=== PATIENT | female | born 1975 | race African-American/Black ===

== ENCOUNTER 2016-09-25 20:49 | Emergency (ER) | payer OTHER ==
[~2016-09-25] VITALS: Ht 170.2 cm; Wt 79.6 kg
[~2016-09-25 20:49] MED LIST: ALPR1TAB2 PO; HYDR200T PO; PANT40TA3 PO; SERT25TA4 PO; TOPI200T25 PO
[2016-09-25] MEDS ORDERED: methylPREDNISolone SOD SUCC PF 125 MG/2 ML VIAL. IV ONE (22:00)
[2016-09-25] MEDS ORDERED: KETOROLAC 15 MG/ML VIAL. IV ONE (22:00)
[2016-09-25] MEDS ORDERED: PRED50TA PO (22:29)
--- NOTE | 2016-09-25 22:30 | PHYS DOC ---
Past History Past Medical History: Anemia, Anxiety, GERD, Immunosuppression, Seizure, Other Past Surgical History: Tubal ligation Alcohol Use: Rarely Drug Use: None Adult General Chief Complaint Chief Complaint: CHEST PAIN-NON CARDIAC NATURE HPI HPI Patient is a 41-year-old female with a history significant for lupus as well as Sjogren's who presents here today complaining of right-sided chest pain 1-2 days. Patient reports usually she takes nonsteroidals at home with relief however she reports currently she has not been able to get adequate relief with her medicines. Patient reports that this feels typical of her lupus flareup. Reports whenever she has a lupus flare up she comes to the hospital and she isn' t sure of Toradol and get started on steroids and his symptoms resolve. Patient denies any other symptomatology. Patient has any history of hypertension diabetes liver longer kidney problems. Patient denies any history of blood clots in her lungs or legs in the past. Patient denies any history of heart disease or heart attacks in the past. Patient has any recent fevers shakes chills nausea vomiting diarrhea cough cold or runny nose. Patient has any abdominal pain. Patient has any calf tenderness. Patient has any hemoptysis. She reports the pain is nonexertional. Patient reports pain increases with inspiration and palpation. Patient's ER physical exam was significant for tenderness to palpation to her right anterior chest wall. Patient's chest x-ray revealed normal heart no infiltrates or effusions. Patient's ER hospital course is significant for receiving a shot of Toradol 50 mg IV as well as her sign Medrol 125 mg IV. Patient was reevaluated at 10:25 PM and reports that she feels significantly improved. Assessment and plan Non-cardiac chest wall pain. This appears to be consistent with the patient's lupus exacerbations per the patient's report. Patient reports that this feels identical in every way. Prior lupus flareups. Patient reports that normally she gets Toradol with significant relief in her pain patient has received her Toradol and Solu-Medrol here and feels much better. Patient be sent home with a short course of steroids and instructions to follow-up with her primary care physician. Patient reports she is not . Patient had a bilateral tubal ligation, no sex 2 years, uterine ablation. Review of Systems Review of Systems Constitutional: Denies fever or chills [] Eyes: Denies change in visual acuity, redness, or eye pain [] HENT: Denies nasal congestion or sore throat [] All other review systems are negative except as documented in the history of present illness portion. Current Medications Current Medications Current Medications Medications (Trade) Dose Ordered Sig/Salud Start Time Stop Time Status Last Admin Dose Admin Ketorolac Tromethamine (Toradol) 15 mg 1X ONCE 09/25/16 22:00 09/25/16 22:01 DC 09/25/16 21:48 15 MG Methylprednisolone Sodium Succinate (SOLU-Medrol 125MG VIAL) 125 mg 1X ONCE 09/25/16 22:00 09/25/16 22:01 DC 09/25/16 21:48 125 MG Allergies Allergies Allergies Coded Allergies Type Severity Reaction Last Updated Verified No Known Drug Allergies 03/15/16 No Physical Exam Physical Exam Constitutional: Well developed, well nourished, no acute distress, non-toxic appearance. HENT: Normocephalic, atraumatic, bilateral external ears normal, oropharynx moist, no oral exudates, nose normal. Eyes: PERRLA, EOMI, conjunctiva normal, no discharge. Neck: Normal range of motion, no tenderness, supple, no stridor. Cardiovascular:Heart rate regular Lungs & Thorax: Bilateral breath sounds clear to auscultation Abdomen: , soft, no tenderness, Skin: Warm, dry, no erythema, no rash. Back: No tenderness, no CVA tenderness. Extremities: No tenderness, no cyanosis, no clubbing, ROM intact, no edema. Neurologic: Alert and oriented X 3, normal motor function, normal sensory function, no focal deficits noted. Psychologic: Affect normal, judgement normal, mood normal. Current Patient Data Vital Signs Vital Signs Date Time Temp Pulse Resp B/P (MAP) Pulse Ox O2 Delivery O2 Flow Rate FiO2 09/25/16 20:50 98.7 96 16 99 Room Air EKG EKG [] Radiology/Procedures Radiology/Procedures [] Course & Med Decision Making Course & Med Decision Making Pertinent Labs and Imaging studies reviewed. (See chart for details) [] Dragon Disclaimer Dragon Disclaimer This chart was dictated in whole or in part using Voice Recognition software in a busy, high-work load, and often noisy Emergency Department environment. It may contain unintended and wholly unrecognized errors or omissions. Departure Departure: Impression: Primary Impression: Chest wall pain Additional Impression: Exacerbation of systemic lupus Condition: GUARDED Referrals: ASHLEY JONES (PCP) Patient Instructions: Chest Wall Pain Additional Instructions: You were seen and evaluated today in the ER for your chest wall pain. This does appear to be likely consistent with your lupus flareup. Your chest x-ray in the ER looks normal. Your being discharged home with instructions to follow-up with her primary care physician or lupus physician for further evaluation and management of your pain. You'll be given a prescription for prednisone to take to assist you with your flareup. Scripts Prednisone (PREDNISONE) 50 Mg Tablet 1 TAB PO DAILY, #5 TAB Prov: INGRIS WEAVER MD 09/25/16 Problem Qualifiers INGRIS WEAVER MD Sep 25, 2016 22:30
[2016-09-25 22:36] VITALS: BP 110/65
--- NOTE | 2016-09-26 07:45 | RAD ---
Chest radiograph 09/25/2016 at 2138 hours Indication: Chest discomfort Comparison: Chest radiograph 03/15/2016 Technique: PA and lateral views of the chest are provided. Findings: Cardiomediastinal silhouette is within normal limits. No pleural effusions, pulmonary vascular congestion or pneumothorax. The lungs are clear. Osseous structures are normal. Impression: No acute cardiopulmonary process.
== END 2016-09-25 22:38 | disposition home or self-care (01) ==
LOC: ER 20:49
DX: R07.89 Other chest pain (principal); M32.9 Systemic lupus erythematosus, unspecified; K21.9 Gastro-esophageal reflux disease without esophagitis; F41.9 Anxiety disorder, unspecified; Z86.2 Personal history of diseases of the blood and blood-forming organs and certain disorders involving the immune mechanism
CPT/HCPCS: 71020; 96374; 96375; 99284; J1885; J2930

== ENCOUNTER → 2016-11-08 | Outpatient (CLI) | payer OTHER ==
[~2016-11-08] MED LIST changes: +PRED50TA PO
[2016-11-08 07:17] LABS: BASO % 1 % (0-3); EOS % 0 % (0-3); HEMOGLOBIN 11.9 g/dL (12.0-15.5); LYMPH # 0.9 x10^3/uL (1.0-4.8); LYMPH % 31 % (24-48); MEAN CORPUSCULAR HEMOGLOBIN 27 pg (25-35); MEAN CORPUSCULAR HGB CONC 33 g/dL (31-37); MEAN CORPUSCULAR VOLUME 80 fL (79-100); MONO # 0.3 x10^3/uL (0.0-1.1); MONO % 10 % (0-9); NEUT # 1.8 x10^3uL (1.8-7.7); NEUT % 59 % (31-73); PLATELET COUNT 222 x10^3/uL (140-400); RED BLOOD COUNT 4.48 x10^6/uL (3.50-5.40); RED CELL DISTRIBUTION WIDTH 14.4 % (11.5-14.5)
[2016-11-08 07:23] LABS: ALBUMIN 3.5 g/dL (3.4-5.0); ALBUMIN/GLOBULIN RATIO 0.7 (1.0-1.7); C REACTIVE PROTEIN 1.9 mg/L (0-3.3); CALCIUM 8.6 mg/dL (8.5-10.1); CREATININE 0.8 mg/dL (0.6-1.0); GFR 96.6; POTASSIUM 3.9 mmol/L (3.5-5.1); TOTAL BILIRUBIN 0.3 mg/dL (0.2-1.0); TOTAL PROTEIN 8.4 g/dL (6.4-8.2)
[2016-11-08 08:20] LABS: SEDIMENTATION RATE 48 (0-25)
[2016-11-08 09:49] LABS: BACTERIA,URINE 0 /HPF (0-FEW); BILIRUBIN,URINE NEG (NEG); CLARITY,URINE CLEAR; COLOR,URINE AMBER; GLUCOSE,URINE NEG (NEG); NITRITE,URINE NEG (NEG); RBC,URINE RARE /HPF (0-2); SQUAMOUS EPITHELIAL CELL,UR OCC /LPF; UROBILINOGEN,URINE 0.2 mg/dL (0.2 mg/dL); WBC,URINE RARE /HPF (0-4)
== END | disposition home or self-care (01) ==
LOC: LAB 06:10
PROVIDERS: ATTEND Internal Medicine Rheumatology
DX: M32.9 Systemic lupus erythematosus, unspecified (principal)
CPT/HCPCS: 36415; 80053; 81001; 85025; 85651; 86140; 87801

== ENCOUNTER 2016-12-05 06:52 | Emergency (ER) | payer OTHER ==
[~2016-12-05] VITALS: Ht 170.2 cm; Wt 78.9 kg
[2016-12-05] MEDS ORDERED: IV NORMAL SALINE 1,000ML 1,000 ML IV SCH (07:06)
--- NOTE | 2016-12-05 07:26 | PHYS DOC ---
Past History Past Medical History: Anemia, Anxiety, GERD, Immunosuppression, Seizure, Other Past Surgical History: Tubal ligation Alcohol Use: Rarely Drug Use: None Adult General Chief Complaint Chief Complaint: BACK PAIN OR INJURY HPI HPI Patient is a 41 year old female who presents with complaint of left-sided chest pain. Patient states that she noticed the pain approximately 7 hours prior to arrival. Patient states that the pain has been constant throughout that whole time. Patient rates the pain as 8 out of 10. Patient describes the pain as sharp and located along the left side of her chest. Patient states it radiates towards her back. Patient notes that the pain worsens when she takes a deep breath. Patient states that she has been having upper respiratory symptoms of congestion and cough over the past 3 days prior to onset of symptoms. Patient gives history of SLE and has had previous flareups in the past. Patient notes that she has not had these symptoms with her previous flareups. Review of Systems Review of Systems Constitutional: Denies fever or chills [] Eyes: Denies change in visual acuity, redness, or eye pain [] HENT: Nasal congestion, denies sore throat [] Respiratory: Cough[] Cardiovascular: Chest pain[] GI: Denies abdominal pain, nausea, vomiting, bloody stools or diarrhea [] : Denies dysuria or hematuria [] Musculoskeletal: Denies back pain or joint pain [] Integument: Denies rash or skin lesions [] Neurologic: Denies headache, focal weakness or sensory changes [] Current Medications Current Medications Current Medications Medications (Trade) Dose Ordered Sig/[facility] Start Time Stop Time Status Last Admin Dose Admin Aspirin (Children'S Aspirin) 324 mg 1X ONCE 12/05/16 07:30 12/05/16 07:31 Fentanyl Citrate (Fentanyl 2ml Vial) 50 mcg PRN Q15MIN PRN 12/05/16 07:15 12/06/16 07:14 Ondansetron HCl (Zofran) 4 mg 1X ONCE 12/05/16 07:30 12/05/16 07:31 Sodium Chloride 1,000 ml @ 1,000 mls/hr Q1H 12/05/16 07:06 12/05/16 08:05 Allergies Allergies Allergies Coded Allergies Type Severity Reaction Last Updated Verified No Known Drug Allergies 03/15/16 No Physical Exam Physical Exam Constitutional: Alert, afebrile, appears in moderate discomfort. [] HENT: Normocephalic, atraumatic, bilateral external ears normal, oropharynx moist, no oral exudates, nose normal. [] Eyes: PERRLA, EOMI, conjunctiva normal, no discharge. [] Neck: Normal range of motion, no tenderness, supple, no stridor. [] Cardiovascular:Heart rate regular rhythm, no murmur [] Lungs & Thorax: Bilateral breath sounds clear to auscultation, left anterior chest wall tenderness to palpation [] Abdomen: Bowel sounds normal, soft, no tenderness, no masses, no pulsatile masses. [] Skin: Warm, dry, no erythema, no rash. [] Back: No tenderness, no CVA tenderness. [] Extremities: No tenderness, no cyanosis, no clubbing, ROM intact, no edema. [] Neurologic: Alert and oriented X 3, normal motor function, normal sensory function, no focal deficits noted. [] Current Patient Data Vital Signs Vital Signs Date Time Temp Pulse Resp B/P (MAP) Pulse Ox O2 Delivery O2 Flow Rate FiO2 12/05/16 08:18 59 18 91/53 (66) 100 Room Air 12/05/16 06:52 98.7 Lab Results Laboratory Tests Test 12/05/16 07:27 12/05/16 07:40 White Blood Count 3.7 x10^3/uL Red Blood Count 4.30 x10^6/uL Hemoglobin 11.5 g/dL Hematocrit 34.7 % Mean Corpuscular Volume 81 fL Mean Corpuscular Hemoglobin 27 pg Mean Corpuscular Hemoglobin Concent 33 g/dL Red Cell Distribution Width 14.4 % Platelet Count 181 x10^3/uL Neutrophils (%) (Auto) 78 % Lymphocytes (%) (Auto) 15 % Monocytes (%) (Auto) 7 % Eosinophils (%) (Auto) 0 % Basophils (%) (Auto) 0 % Neutrophils # (Auto) 2.9 x10^3uL Lymphocytes # (Auto) 0.6 x10^3/uL Monocytes # (Auto) 0.3 x10^3/uL Eosinophils # (Auto) 0.0 x10^3/uL Basophils # (Auto) 0.0 x10^3/uL Sodium Level 136 mmol/L Potassium Level 3.7 mmol/L Chloride Level 105 mmol/L Carbon Dioxide Level 23 mmol/L Anion Gap 8 Blood Urea Nitrogen 11 mg/dL Creatinine 0.9 mg/dL Estimated GFR (Cockcroft-Gault) 84.3 BUN/Creatinine Ratio 12 Glucose Level 83 mg/dL Calcium Level 8.8 mg/dL Magnesium Level 1.6 mg/dL Total Bilirubin 0.3 mg/dL Aspartate Amino Transf (AST/SGOT) 22 U/L Alanine Aminotransferase (ALT/SGPT) 20 U/L Alkaline Phosphatase 75 U/L Creatine Kinase 170 U/L Creatine Kinase MB (Mass) 1.4 ng/mL Creatine Kinase MB Relative Index 0.8 % Troponin I Quantitative < 0.017 ng/mL Total Protein 8.6 g/dL Albumin 3.4 g/dL Albumin/Globulin Ratio 0.7 Urine Collection Type Void Urine Color Yellow Urine Clarity Clear Urine pH 5.5 Urine Specific [place] 1.025 Urine Protein Neg Urine Glucose (UA) Neg mg/dL Urine Ketones (Stick) Neg mg/dL Urine Blood Neg Urine Nitrite Neg Urine Bilirubin Neg Urine Urobilinogen Dipstick 0.2 mg/dL Urine Leukocyte Esterase Neg Urine RBC 0 /HPF Urine WBC Occ /HPF Urine Squamous Epithelial Cells Occ /LPF Urine Bacteria 0 /HPF Urine Mucus Mod /LPF Urine Test Negative Current Medications Medications (Trade) Dose Ordered Sig/[facility]ud Route PRN Reason Start Time Stop Time Status Last Admin Dose Admin Aspirin (Children'S Aspirin) 324 mg 1X ONCE PO 12/05/16 07:30 12/05/16 07:31 DC 12/05/16 07:48 Fentanyl Citrate (Fentanyl 2ml Vial) 50 mcg PRN Q15MIN PRN IV PAIN GREATER THAN 3/10 12/05/16 07:15 12/06/16 07:14 12/05/16 07:49 Sodium Chloride 1,000 ml @ 1,000 mls/hr Q1H IV 12/05/16 07:06 12/05/16 08:05 DC 12/05/16 07:48 Ondansetron HCl (Zofran) 4 mg 1X ONCE IV 12/05/16 07:30 12/05/16 07:31 DC 12/05/16 07:48 Dexamethasone Sodium Phosphate (Decadron) 12 mg 1X ONCE IV 12/05/16 08:15 12/05/16 08:16 DC 12/05/16 08:06 EKG EKG Interpreted by me: Heart rate 64, sinus rhythm, normal intervals, normal axis, no acute ST/T-wave abnormalities present[] Radiology/Procedures Radiology/Procedures [address] [address] IMAGING REPORT Signed PATIENT: HOMA DOMINIQUE ACCOUNT: [id number] : 1975 LOCATION: ER AGE: 41 SEX: F EXAM STATUS: REG ER ORD. PHYSICIAN: WEN VENTURA MD REASON: chest pain PROCEDURE: PORTABLE CHEST 1V Portable chest, 12/05/2016: History: Chest pain Comparison is made to a study from 09/25/2016. The heart size and pulmonary vascularity are normal. There is mild left basilar infiltrate obscuring the heart border. The right lung is clear. There is no evidence of pleural fluid or pneumothorax. IMPRESSION: Mild left basilar atelectasis/infiltrate. DICTATED AND SIGNED BY: ABELINO JOHNSON MD DATE: 12/05/16731 CC: WEN VENTURA MD; ASHLEY JONES PA ~ [address] [address] IMAGING REPORT Signed PATIENT: HOMA DOMINIQUE ACCOUNT: [id number] : 1975 LOCATION: ER AGE: 41 SEX: F EXAM STATUS: REG ER ORD. PHYSICIAN: WEN VENTURA MD REASON: chest pain, positive d-dimer, rule out PE PROCEDURE: CT ANGIOGRAPHY CHEST Examination: CT angiography chest History: history of chest pain, elevated d-dimer. Comparison: 03/15/2016 Technique: Axial CT and radiographic images were performed with IV contrast. Coronal and sagittal 3-D MIP form was performed. PQRS Compliance Statement: One or more of the following individualized dose reduction techniques were utilized for this examination: 1. Automated exposure control 2. Adjustment of the mA and/or kV according to patient size 3. Use of iterative reconstruction technique Findings: The central airways are patent. The heart size grossly appears unremarkable. The caliber of the aorta grossly is unremarkable. There is no evidence of filling defect identified in the main pulmonary artery trunk and right and left main pulmonary arteries and the visualized lobar, segmental branches of the pulmonary arteries. There are multiple patchy airspace opacities identified in the bibasal lungs likely pneumonia or atelectasis or interstitial changes due to chronic fibrosis, has increased compared to prior exam. There are few scattered airspace opacities identified in the bilateral lungs. Interlobular septal thickening identified in the bilateral upper lobes particularly in the periphery of the bilateral upper lobes similar to prior exam. There is a 6 mm nodule identified in the right lower lobe of the lung grossly similar to prior exam. The visualized liver, spleen, and adrenals grossly appears unremarkable Mild degenerative changes thoracic spine. Impression: 1. No evidence of pulmonary embolism. 2. Interval increase in bibasal lung consolidation changes could be pneumonia or atelectasis or chronic interstitial changes. 3. Mild interlobular septal thickening identified in the bilateral upper lungs particularly in the periphery of the lungs could be secondary to interstitial lung disease. Correlate clinically. 4. 6 mm nodule right lower lobe of the lung unchanged. DICTATED AND SIGNED BY: ARUN REN MD DATE: 12/05/16 0903 CC: WEN VENTURA MD; ASHLEY JONES ~ [] Course & Med Decision Making Course & Med Decision Making Pertinent Labs and Imaging studies reviewed. (See chart for details) Patient was given aspirin, Decadron, fentanyl, and Zofran in the emergency department. The patient's D-dimer test was positive prompting CT angiogram. This was negative for pulmonary embolism. The patient has findings that may present evidence for acute pneumonia. The patient's pain appears to be likely pleuritic. Due to onset of pain 7 hours prior to arrival and normal CK, CK-MB, and troponin, one set of cardiac enzymes were used to rule out acute cardiac ischemia. Patient will be discharged on Medrol, albuterol, [place], and azithromycin. Advised follow-up in 2 days with primary doctor for reevaluation and return to emergency department for any worsening symptoms. Patient voiced understanding and in agreement with treatment plan. Dragon Disclaimer Dragon Disclaimer This chart was dictated in whole or in part using Voice Recognition software in a busy, high-work load, and often noisy Emergency Department environment. It may contain unintended and wholly unrecognized errors or omissions. Departure Departure: Impression: Primary Impression: Atypical pneumonia Additional Impression: Pleuritic chest pain Disposition: HOME, SELF-CARE Condition: IMPROVED Referrals: ASHLEY JONES (PCP) Patient Instructions: Pleurisy, Pneumonia, Adult Additional Instructions: Follow-up with your primary doctor in 2 days for reevaluation. Return to the emergency department for any worsening symptoms. Scripts Albuterol Sulfate (VENTOLIN HFA INHALER) 18 Gm Hfa.aer.ad 1 PUFF IH Q4HRS Y for SHORTNESS OF BREATH, #1 INHALER 0 Refills Prov: WEN VENTURA MD 12/05/16 Azithromycin (ZITHROMAX) 250 Mg Tablet 1 PKG PO UD, #6 TAB Prov: WEN VENTURA MD 12/05/16 Methylprednisolone (MEDROL) 4 Mg Tab.ds.pk 1 PKG PO UD, #1 PKG Prov: WEN VENTURA MD 12/05/16 Hydrocodone Bit/Acetaminophen (NORCO 5-325 TABLET) 1 Each Tablet 1-2 TAB PO Q4-6HRS Y for PAIN, #15 TAB Prov: WEN VENTURA MD 12/05/16 Problem Qualifiers WEN VENTURA MD Dec 05, 2016 07:26
[2016-12-05] MEDS ORDERED: ONDANSETRON PF 4 MG/2 ML VIAL. IV ONE (07:30)
[2016-12-05] MEDS ORDERED: ASPIRIN 81 MG TAB.CHEW PO ONE (07:30)
--- NOTE | 2016-12-05 07:36 | RAD ---
Portable chest, 12/05/2016: History: Chest pain Comparison is made to a study from 09/25/2016. The heart size and pulmonary vascularity are normal. There is mild left basilar infiltrate obscuring the heart border. The right lung is clear. There is no evidence of pleural fluid or pneumothorax. IMPRESSION: Mild left basilar atelectasis/infiltrate.
--- NOTE | 2016-12-05 07:38 | EKG ---
[address] [address] Test Date: 2016-12-05 Test Time: 07:13:11 Pat Name: HOMA DOMINIQUE Department: Room: Gender: F Nursing Home Assistant: : 1975 Requested By: WEN VENTURA Order Number: [id number] Reading MD: Igor Elise Measurements Intervals [place] Rate: 64 P: 22 DC: 166 QRS: 7 QRSD: 74 T: 22 QT: 398 QTc: 415 Interpretive Statements SINUS RHYTHM Electronically Signed On 12-11-2016 8:17:40 CDT by Igor Elise
[2016-12-05 07:45] LABS: BASO % 0 % (0-3); EOS % 0 % (0-3); HEMATOCRIT 34.7 % (36.0-47.0); HEMOGLOBIN 11.5 g/dL (12.0-15.5); LYMPH # 0.6 x10^3/uL (1.0-4.8); LYMPH % 15 % (24-48); MEAN CORPUSCULAR HEMOGLOBIN 27 pg (25-35); MEAN CORPUSCULAR HGB CONC 33 g/dL (31-37); MEAN CORPUSCULAR VOLUME 81 fL (79-100); MONO # 0.3 x10^3/uL (0.0-1.1); MONO % 7 % (0-9); NEUT # 2.9 x10^3uL (1.8-7.7); NEUT % 78 % (31-73); PLATELET COUNT 181 x10^3/uL (140-400); RED CELL DISTRIBUTION WIDTH 14.4 % (11.5-14.5); WHITE BLOOD COUNT 3.7 x10^3/uL (4.0-11.0)
[2016-12-05 07:58] LABS: BACTERIA,URINE 0 /HPF (0-FEW); BILIRUBIN,URINE NEG (NEG); CLARITY,URINE CLEAR; COLOR,URINE YELLOW; GLUCOSE,URINE NEG (NEG); NITRITE,URINE NEG (NEG); RBC,URINE 0 /HPF (0-2); SQUAMOUS EPITHELIAL CELL,UR OCC /LPF; UROBILINOGEN,URINE 0.2 mg/dL (0.2 mg/dL); WBC,URINE OCC /HPF (0-4)
[2016-12-05 07:59] LABS: U PREG PATIENT NEGATIVE (NEG)
[2016-12-05 08:06] LABS: ALBUMIN 3.4 g/dL (3.4-5.0); ALBUMIN/GLOBULIN RATIO 0.7 (1.0-1.7); CALCIUM 8.8 mg/dL (8.5-10.1); CREATININE 0.9 mg/dL (0.6-1.0); GFR 84.3; MAGNESIUM 1.6 mg/dL (1.8-2.4); POTASSIUM 3.7 mmol/L (3.5-5.1); TOTAL BILIRUBIN 0.3 mg/dL (0.2-1.0); TOTAL PROTEIN 8.6 g/dL (6.4-8.2)
[2016-12-05] MEDS ORDERED: DEXAMETHASONE SOD PHOS 4 MG/ML VIAL IV ONE (08:15)
[2016-12-05 08:18] VITALS: BP 91/53
[2016-12-05] MEDS ORDERED: IOHEXOL 300 MG/ML 75 ML VIAL. IV ONE (09:00)
--- NOTE | 2016-12-05 09:14 | RAD ---
Examination: CT angiography chest History: history of chest pain, elevated d-dimer. Comparison: 03/15/2016 Technique: Axial CT and radiographic images were performed with IV contrast. Coronal and sagittal 3-D MIP form was performed. PQRS Compliance Statement: One or more of the following individualized dose reduction techniques were utilized for this examination: 1. Automated exposure control 2. Adjustment of the mA and/or kV according to patient size 3. Use of iterative reconstruction technique Findings: The central airways are patent. The heart size grossly appears unremarkable. The caliber of the aorta grossly is unremarkable. There is no evidence of filling defect identified in the main pulmonary artery trunk and right and left main pulmonary arteries and the visualized lobar, segmental branches of the pulmonary arteries. There are multiple patchy airspace opacities identified in the bibasal lungs likely pneumonia or atelectasis or interstitial changes due to chronic fibrosis, has increased compared to prior exam. There are few scattered airspace opacities identified in the bilateral lungs. Interlobular septal thickening identified in the bilateral upper lobes particularly in the periphery of the bilateral upper lobes similar to prior exam. There is a 6 mm nodule identified in the right lower lobe of the lung grossly similar to prior exam. The visualized liver, spleen, and adrenals grossly appears unremarkable Mild degenerative changes thoracic spine. Impression: 1. No evidence of pulmonary embolism. 2. Interval increase in bibasal lung consolidation changes could be pneumonia or atelectasis or chronic interstitial changes. 3. Mild interlobular septal thickening identified in the bilateral upper lungs particularly in the periphery of the lungs could be secondary to interstitial lung disease. Correlate clinically. 4. 6 mm nodule right lower lobe of the lung unchanged.
[2016-12-05] MEDS ORDERED: AZIT250T PO (09:26)
[2016-12-05] MEDS ORDERED: HYDR-971 PO (09:26)
[2016-12-05] MEDS ORDERED: ALBU18HF IH (09:26)
[2016-12-05] MEDS ORDERED: METH4TAB2 PO (09:26)
== END 2016-12-05 09:40 | disposition home or self-care (01) ==
LOC: ER 06:52
DX: J18.9 Pneumonia, unspecified organism (principal); R07.81 Pleurodynia; K21.9 Gastro-esophageal reflux disease without esophagitis; F41.9 Anxiety disorder, unspecified; Z86.2 Personal history of diseases of the blood and blood-forming organs and certain disorders involving the immune mechanism
CPT/HCPCS: 36415; 71010; 71275; 80053; 81001; 81025; 82553; 83735; 84484; 85025; 85379; 85610; 85730; 93005; 96361; 96374; 96375; 96376; 99285; J1100; J2405; J3010; Q9967; J7030

== ENCOUNTER → 2017-02-25 | Outpatient (CLI) | payer OTHER ==
[~2017-02-25] MED LIST changes: +ALBU18HF IH; +AZIT250T PO; +HYDR-971 PO; -HYDR200T PO; +HYDR200T71 PO; +METH4TAB2 PO
[2017-02-25 11:52] LABS: BASO % 2 % (0-3); EOS % 0 % (0-3); HEMATOCRIT 38.1 % (36.0-47.0); HEMOGLOBIN 12.6 g/dL (12.0-15.5); LYMPH # 0.7 x10^3/uL (1.0-4.8); LYMPH % 28 % (24-48); MEAN CORPUSCULAR HEMOGLOBIN 27 pg (25-35); MEAN CORPUSCULAR HGB CONC 33 g/dL (31-37); MEAN CORPUSCULAR VOLUME 81 fL (79-100); MONO # 0.3 x10^3/uL (0.0-1.1); MONO % 12 % (0-9); NEUT # 1.4 x10^3uL (1.8-7.7); NEUT % 58 % (31-73); PLATELET COUNT 204 x10^3/uL (140-400); RED BLOOD COUNT 4.71 x10^6/uL (3.50-5.40); RED CELL DISTRIBUTION WIDTH 15.1 % (11.5-14.5); WHITE BLOOD COUNT 2.5 x10^3/uL (4.0-11.0)
[2017-02-25 12:04] LABS: ALBUMIN 3.7 g/dL (3.4-5.0); ALBUMIN/GLOBULIN RATIO 0.7 (1.0-1.7); CALCIUM 8.8 mg/dL (8.5-10.1); CREATININE 0.9 mg/dL (0.6-1.0); GFR 83.9; POTASSIUM 4.1 mmol/L (3.5-5.1); TOTAL BILIRUBIN 0.2 mg/dL (0.2-1.0); TOTAL PROTEIN 9.1 g/dL (6.4-8.2)
[2017-02-25 13:01] LABS: SEDIMENTATION RATE 48 (0-25)
[2017-02-25 13:43] LABS: FREE T4 0.79 ng/dL (0.76-1.46)
[2017-02-25 13:44] LABS: THYROID STIM HORMONE (TSH) 1.474 uIU/mL (0.358-3.740)
== END | disposition home or self-care (01) ==
LOC: LAB 10:18
PROVIDERS: ATTEND Physician Assistant Medical
DX: M35.1 Other overlap syndromes (principal); K21.9 Gastro-esophageal reflux disease without esophagitis; R79.89 Other specified abnormal findings of blood chemistry; E55.9 Vitamin D deficiency, unspecified
CPT/HCPCS: 36415; 80053; 80061; 82306; 82607; 82746; 83540; 83550; 84439; 84443; 84481; 85025; 85651

== ENCOUNTER → 2017-03-06 | Outpatient (CLI) | payer OTHER ==
--- NOTE | 2017-03-06 15:55 | RAD ---
DATE: 03/06/2017 EXAM: MAMMO JANAE SCREENING BILATERAL HISTORY: Screening Mammogram COMPARISON: None This study was interpreted with the benefit of Computerized Aided Detection (CAD). The breast parenchyma shows scattered fibroglandular densities. Breast parenchyma level B. FINDINGS: Bilateral digital 2-D and 3-D tomosynthesis CC and MLO views. No suspicious mass, calcification or architectural distortion. IMPRESSION: No mammographic evidence of malignancy. Recommend routine screening mammogram in 12 months. BI-RADS CATEGORY: 1 NEGATIVE RECOMMENDED FOLLOW-UP: 12M 12 MONTH FOLLOW-UP PQRS compliance statement: Patient information was entered into a reminder system with a target due date for the next mammogram. Mammography is a sensitive method for finding small breast cancers, but it does not detect them all and is not a substitute for careful clinical examination. A negative mammogram does not negate a clinically suspicious finding and should not result in delay in biopsying a clinically suspicious abnormality. "Our facility is accredited by the [employer] Mammography Program."
== END | disposition home or self-care (01) ==
LOC: MAMMO 13:53
PROVIDERS: ATTEND Physician Assistant Medical
DX: Z12.31 Encounter for screening mammogram for malignant neoplasm of breast (principal)
CPT/HCPCS: 77063; 77067

== ENCOUNTER → 2017-05-08 | Outpatient (CLI) | payer OTHER ==
[2017-03-12 14:56] VITALS: BP 114/70
[2017-05-08 08:40] LABS: BASO % 1 % (0-3); EOS % 0 % (0-3); HEMATOCRIT 38.2 % (36.0-47.0); HEMOGLOBIN 12.7 g/dL (12.0-15.5); LYMPH # 0.7 x10^3/uL (1.0-4.8); LYMPH % 27 % (24-48); MEAN CORPUSCULAR HEMOGLOBIN 28 pg (25-35); MEAN CORPUSCULAR HGB CONC 33 g/dL (31-37); MEAN CORPUSCULAR VOLUME 83 fL (79-100); MONO # 0.3 x10^3/uL (0.0-1.1); MONO % 10 % (0-9); NEUT # 1.7 x10^3uL (1.8-7.7); NEUT % 63 % (31-73); PLATELET COUNT 211 x10^3/uL (140-400); RED BLOOD COUNT 4.61 x10^6/uL (3.50-5.40); RED CELL DISTRIBUTION WIDTH 15.3 % (11.5-14.5); WHITE BLOOD COUNT 2.6 x10^3/uL (4.0-11.0)
[2017-05-08 08:44] LABS: ALBUMIN 3.6 g/dL (3.4-5.0); ALBUMIN/GLOBULIN RATIO 0.6 (1.0-1.7); C REACTIVE PROTEIN 8.6 mg/L (0-3.3); CALCIUM 8.7 mg/dL (8.5-10.1); CREATININE 0.8 mg/dL (0.6-1.0); GFR 96.1; POTASSIUM 4.2 mmol/L (3.5-5.1); TOTAL BILIRUBIN 0.2 mg/dL (0.2-1.0); TOTAL PROTEIN 9.3 g/dL (6.4-8.2)
[2017-05-08 09:43] LABS: SEDIMENTATION RATE 35 (0-25)
== END | disposition home or self-care (01) ==
LOC: LAB 08:05
PROVIDERS: ATTEND Internal Medicine Rheumatology
DX: M32.9 Systemic lupus erythematosus, unspecified (principal)
CPT/HCPCS: 36415; 80053; 85025; 85651; 86140; 87801

== ENCOUNTER 2017-06-19 20:03 | Emergency (ER) | payer OTHER ==
[~2017-06-19] VITALS: Ht 170.2 cm; Wt 79.8 kg
[2017-06-19] MEDS ORDERED: ASPIRIN 81 MG TAB.CHEW PO ONE (21:00)
[2017-06-19 21:20] LABS: BASO % 0 % (0-3); EOS % 0 % (0-3); HEMATOCRIT 33.8 % (36.0-47.0); HEMOGLOBIN 11.3 g/dL (12.0-15.5); LYMPH # 0.7 x10^3/uL (1.0-4.8); LYMPH % 18 % (24-48); MEAN CORPUSCULAR HEMOGLOBIN 28 pg (25-35); MEAN CORPUSCULAR HGB CONC 33 g/dL (31-37); MEAN CORPUSCULAR VOLUME 83 fL (79-100); MONO # 0.4 x10^3/uL (0.0-1.1); MONO % 9 % (0-9); NEUT # 2.9 x10^3uL (1.8-7.7); NEUT % 73 % (31-73); PLATELET COUNT 226 x10^3/uL (140-400); RED BLOOD COUNT 4.09 x10^6/uL (3.50-5.40); RED CELL DISTRIBUTION WIDTH 13.9 % (11.5-14.5)
[2017-06-19] MEDS ORDERED: NAPROXEN 500 MG TABLET PO ONE (21:30)
[2017-06-19 21:34] LABS: ALBUMIN 3.2 g/dL (3.4-5.0); ALBUMIN/GLOBULIN RATIO 0.6 (1.0-1.7); CALCIUM 8.4 mg/dL (8.5-10.1); CREATININE 0.8 mg/dL (0.6-1.0); GFR 96.1; POTASSIUM 3.5 mmol/L (3.5-5.1); TOTAL BILIRUBIN 0.3 mg/dL (0.2-1.0); TOTAL PROTEIN 8.9 g/dL (6.4-8.2)
[2017-06-19] MEDS ORDERED: IOHEXOL 300 MG/ML 75 ML VIAL. IV ONE (22:00)
--- NOTE | 2017-06-19 22:13 | RAD ---
Chest CTA History: Chest pain, pleuritic pain, history of lupus Technique: After bolus of intravenous contrast, CT imaging was performed of the chest. Multiplanar reconstruction images to include MIP reconstruction images are submitted. Exposure: One or more of the following individualized dose reduction techniques were utilized for this examination: 1. Automated exposure control 2. Adjustment of the mA and/or kV according to patient size 3. Use of iterative reconstruction technique. Contrast: 75 cc Omnipaque 300 Comparison: 12/05/2016 Findings: There is again small left pleural effusion, somewhat larger. No pulmonary embolism is identified. There is no pneumothorax or significant right pleural fluid. There are again some infiltrates of the lower lobes bilaterally. There is a noncalcified superior right lower lobe nodule axial image 55 about 0.6 cm somewhat smaller as previously 0.8 cm. There is also some peripheral septal thickening as seen previously. There is again axillary lymphadenopathy although slightly decreased on the left. Mediastinal nodes are similar, considered somewhat enlarged. There is again some density in the anterior mediastinum overall unchanged. Thoracic vertebral body stature and AP alignment are maintained. There is again splenomegaly. There is some mild gaseous distention of segments of the esophagus greater distally. Impression: 1. No pulmonary embolism is identified. Small pleural effusion was present previously, somewhat larger. There again findings of interstitial lung disease. There are chronic infiltrates of the lower lobes bilaterally as seen previously. Previously seen superior right lower lobe nodule is slightly smaller. There is again lymphadenopathy of the axillary regions although somewhat decreased on the left in the interval. There is splenomegaly. Electronically signed by: Augustus Weir MD (06/19/2017 10:10 PM) [facility]
[2017-06-19 23:30] VITALS: BP 123/76
--- NOTE | 2017-06-20 00:35 | PHYS DOC ---
Past History Past Medical History: Anemia, Anxiety, GERD, Immunosuppression, Seizure, Other Past Surgical History: Tubal ligation Alcohol Use: Rarely Drug Use: None Adult General Chief Complaint Chief Complaint: SHORTNESS OF BREATH HPI HPI 42-year-old female complaining of pleuritic pain. She has chest discomfort that only hurts when she takes a deep breath or coughs. No productive cough or fever. No leg swelling or history of DVT. Patient has never had a pulmonary embolism. No history of spontaneous pneumothorax. Patient denies exertional chest pain and has no cardiac history Review of Systems Review of Systems Constitutional: Denies fever or chills [] Eyes: Denies change in visual acuity, redness, or eye pain [] HENT: Denies nasal congestion or sore throat [] Respiratory: Denies cough or shortness of breath [] Cardiovascular: No additional information not addressed in HPI [] GI: Denies abdominal pain, nausea, vomiting, bloody stools or diarrhea [] : Denies dysuria or hematuria [] Musculoskeletal: Denies back pain or joint pain [] Integument: Denies rash or skin lesions [] Neurologic: Denies headache, focal weakness or sensory changes [] Endocrine: Denies polyuria or polydipsia [] All other systems were reviewed and found to be within normal limits, except as documented in this note. Current Medications Current Medications Current Medications Medications (Trade) Dose Ordered Sig/Salud Start Time Stop Time Status Last Admin Dose Admin Aspirin (Children'S Aspirin) 324 mg 1X ONCE 06/19/17 21:00 06/19/17 21:01 DC 06/19/17 20:56 324 MG Iohexol (Omnipaque 300 Mg/ml) 75 ml 1X ONCE 06/19/17 22:00 06/19/17 22:01 DC 06/19/17 21:39 75 ML Naproxen (Naprosyn) 500 mg 1X ONCE 06/19/17 21:30 06/19/17 21:31 DC 06/19/17 20:59 500 MG Allergies Allergies Allergies Coded Allergies Type Severity Reaction Last Updated Verified No Known Drug Allergies 03/15/16 No Physical Exam Physical Exam Constitutional: Well developed, well nourished, no acute distress, non-toxic appearance. [] HENT: Normocephalic, atraumatic, bilateral external ears normal, oropharynx moist, no oral exudates, nose normal. [] Eyes: PERRLA, EOMI, conjunctiva normal, no discharge. [] Neck: Normal range of motion, no tenderness, supple, no stridor. [] Cardiovascular:Heart rate regular rhythm, no murmur [] Lungs & Thorax: Bilateral breath sounds clear to auscultation [] Abdomen: Bowel sounds normal, soft, no tenderness, no masses, no pulsatile masses. [] Skin: Warm, dry, no erythema, no rash. [] Back: No tenderness, no CVA tenderness. [] Extremities: No tenderness, no cyanosis, no clubbing, ROM intact, no edema. [] Neurologic: Alert and oriented X 3, normal motor function, normal sensory function, no focal deficits noted. [] Psychologic: Affect mildly anxious, judgement normal, mood normal. [] Current Patient Data Lab Results Laboratory Tests Test 06/19/17 21:00 White Blood Count 4.0 x10^3/uL (4.0-11.0) Red Blood Count 4.09 x10^6/uL (3.50-5.40) Hemoglobin 11.3 g/dL (12.0-15.5) L Hematocrit 33.8 % (36.0-47.0) L Mean Corpuscular Volume 83 fL (79-100) Mean Corpuscular Hemoglobin 28 pg (25-35) Mean Corpuscular Hemoglobin Concent 33 g/dL (31-37) Red Cell Distribution Width 13.9 % (11.5-14.5) Platelet Count 226 x10^3/uL (140-400) Neutrophils (%) (Auto) 73 % (31-73) Lymphocytes (%) (Auto) 18 % (24-48) L Monocytes (%) (Auto) 9 % (0-9) Eosinophils (%) (Auto) 0 % (0-3) Basophils (%) (Auto) 0 % (0-3) Neutrophils # (Auto) 2.9 x10^3uL (1.8-7.7) Lymphocytes # (Auto) 0.7 x10^3/uL (1.0-4.8) L Monocytes # (Auto) 0.4 x10^3/uL (0.0-1.1) Eosinophils # (Auto) 0.0 x10^3/uL (0.0-0.7) Basophils # (Auto) 0.0 x10^3/uL (0.0-0.2) Sodium Level 138 mmol/L (136-145) Potassium Level 3.5 mmol/L (3.5-5.1) Chloride Level 107 mmol/L (98-107) Carbon Dioxide Level 20 mmol/L (21-32) L Anion Gap 11 (6-14) Blood Urea Nitrogen 12 mg/dL (7-20) Creatinine 0.8 mg/dL (0.6-1.0) Estimated GFR (Cockcroft-Gault) 96.1 BUN/Creatinine Ratio 15 (6-20) Glucose Level 82 mg/dL (70-99) Calcium Level 8.4 mg/dL (8.5-10.1) L Total Bilirubin 0.3 mg/dL (0.2-1.0) Aspartate Amino Transferase (AST) 24 U/L (15-37) Alanine Aminotransferase (ALT) 23 U/L (14-59) Alkaline Phosphatase 89 U/L (46-116) Troponin I Quantitative < 0.017 ng/mL (0-0.055) Total Protein 8.9 g/dL (6.4-8.2) H Albumin 3.2 g/dL (3.4-5.0) L Albumin/Globulin Ratio 0.6 (1.0-1.7) L EKG EKG [] Radiology/Procedures Radiology/Procedures Chest x-ray with left-sided pleural effusion reviewed by me[] Course & Med Decision Making Course & Med Decision Making Pertinent Labs and Imaging studies reviewed. (See chart for details) Signs and symptoms consistent with pleurisy. Chest x-ray unremarkable except for effusion. Patient with no clinical pneumonia. CTA of the chest done unremarkable for some incidental findings. Patient given a copy of CT report to follow up with her primary care physician regarding his exertional findings for reevaluation and to arrange further workup and treatment as needed. Patient stable for outpatient follow-up with which she agrees and strict return precautions given [] Dragon Disclaimer Dragon Disclaimer This electronic medical record was generated, in whole or in part, using a voice recognition dictation system. Departure Departure: Impression: Primary Impression: Pleurisy Additional Impressions: Pleural effusion on left Axillary lymphadenopathy Splenomegaly Disposition: HOME, SELF-CARE Condition: GOOD Patient Instructions: Pleurisy Additional Instructions: You're experiencing pleurisy. Pleurisy is chest pain, typically sharp and stabbing, which is a result of irritation of the lung lining called the pleura. It is common to have this type of pain in the setting of a pulmonary infection. The CT angiogram of your chest shows no blood clot in your lung and no signs of an emergency at this time. You been given a copy of the CT result to follow up with your doctor regarding incidental findings which have been seen previously including a left pleural effusion, axillary lymphadenopathy, and splenomegaly. All 3 of these diagnoses have been visualized previously. Continue your current medication regimen as prescribed. Take anti-inflammatory medication such as ibuprofen as needed for discomfort. Follow-up with your doctor tomorrow and return immediately for new severe or worsening symptoms. Problem Qualifiers VERNON BUSTOS MD June 20, 2017 00:35
--- NOTE | 2017-06-20 03:47 | EKG ---
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
--- NOTE | 2017-06-20 08:38 | RAD ---
Single view of the chest. 06/19/2017 8:57 PM Indication: CHEST PAIN FINDINGS: Blunting of left costophrenic angle is noted. Findings likely represent a small pleural effusion. Loculation not excluded as collection appears to extend along lateral chest wall. Underlying atelectasis or infiltrate is possible. No pneumothorax is identified. Right lung appears to be grossly clear. Heart size is normal. Bony thorax is intact. IMPRESSION: Small left pleural effusion, possibly loculated. Underlying atelectasis or infiltrate is possible Electronically signed by: Ruben Howe MD (06/20/2017 8:35 AM) [id number]
--- NOTE | 2017-06-20 20:36 | EKG ---
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
== END 2017-06-20 00:49 | disposition home or self-care (01) ==
LOC: ER 20:03
DX: J90 Pleural effusion, not elsewhere classified (principal); R59.1 Generalized enlarged lymph nodes; R16.1 Splenomegaly, not elsewhere classified; F41.9 Anxiety disorder, unspecified; K21.9 Gastro-esophageal reflux disease without esophagitis; Z86.2 Personal history of diseases of the blood and blood-forming organs and certain disorders involving the immune mechanism
CPT/HCPCS: 36415; 71045; 71275; 80053; 84484; 85025; 93005; 99285; Q9967

== ENCOUNTER → 2017-11-11 | Outpatient (CLI) | payer OTHER ==
[2017-11-11 08:01] LABS: BASO % 1 % (0-3); EOS % 1 % (0-3); HEMATOCRIT 35.3 % (36.0-47.0); HEMOGLOBIN 11.8 g/dL (12.0-15.5); LYMPH # 0.7 x10^3/uL (1.0-4.8); LYMPH % 25 % (24-48); MEAN CORPUSCULAR HEMOGLOBIN 28 pg (25-35); MEAN CORPUSCULAR HGB CONC 34 g/dL (31-37); MEAN CORPUSCULAR VOLUME 83 fL (79-100); MONO # 0.3 x10^3/uL (0.0-1.1); MONO % 10 % (0-9); NEUT # 1.8 x10^3uL (1.8-7.7); NEUT % 64 % (31-73); PLATELET COUNT 216 x10^3/uL (140-400); RED BLOOD COUNT 4.24 x10^6/uL (3.50-5.40); RED CELL DISTRIBUTION WIDTH 13.3 % (11.5-14.5); WHITE BLOOD COUNT 2.8 x10^3/uL (4.0-11.0)
[2017-11-11 08:11] LABS: ALBUMIN 3.5 g/dL (3.4-5.0); ALBUMIN/GLOBULIN RATIO 0.7 (1.0-1.7); C REACTIVE PROTEIN 5.7 mg/L (0-3.3); CALCIUM 8.7 mg/dL (8.5-10.1); CREATININE 0.8 mg/dL (0.6-1.0); GFR 96.1; TOTAL BILIRUBIN 0.2 mg/dL (0.2-1.0); TOTAL PROTEIN 8.3 g/dL (6.4-8.2)
[2017-11-11 09:10] LABS: SEDIMENTATION RATE 35 (0-25)
== END | disposition home or self-care (01) ==
LOC: LAB 07:34
PROVIDERS: ATTEND Internal Medicine Rheumatology
DX: M32.9 Systemic lupus erythematosus, unspecified (principal)
CPT/HCPCS: 36415; 80053; 85025; 85651; 86140; 87801

== ENCOUNTER 2018-02-22 00:03 | Emergency (ER) | payer OTHER ==
[~2018-02-22] VITALS: Ht 170.2 cm; Wt 80.7 kg
[~2018-02-22 00:03] MED LIST changes: -ALBU18HF IH; +ALBU2.5V8 IH; +HYDR-3165 PO; -HYDR-971 PO
--- NOTE | 2018-02-22 00:08 | ED.ADGEN ---
Past History Past Medical History: Anemia, Anxiety, GERD, Immunosuppression, Seizure, Other Past Surgical History: Tubal ligation Alcohol Use: Rarely Drug Use: None Adult General Chief Complaint Chief Complaint ".. I got rash and itching all over after I took nitrofurantoin... HPI HPI Patient is a 43 year old female who presents with above hx and complaints diffuse rash and itching after completing a course of nitrofurantoin. Patient does have a history of immunosuppression secondary to lupus. She also has history of anxiety, anemia, GERD, Seizures and arthritis. Patient denies any fever or chills. Has not been currently on steroids. Pt. normally follows with Dr. Gonzalez. Review of Systems Review of Systems Constitutional: Denies fever or chills [] Eyes: Denies change in visual acuity, redness, or eye pain [] HENT: Denies nasal congestion or sore throat [] Respiratory: Denies cough or shortness of breath [] Cardiovascular: No additional information not addressed in HPI [] GI: Denies abdominal pain, nausea, vomiting, bloody stools or diarrhea [] : Denies dysuria or hematuria [] Musculoskeletal: Denies back pain or joint pain [] Integument: Complaints of rash Neurologic: Denies headache, focal weakness or sensory changes [] Endocrine: Denies polyuria or polydipsia [] All other systems were reviewed and found to be within normal limits, except as documented in this note. Family History Family History Non Contributory Current Medications Current Medications Current Medications Medications (Trade) Dose Ordered Sig/Salud Start Time Stop Time Status Last Admin Dose Admin Famotidine (Pepcid) 20 mg 1X ONCE 02/22/18 01:00 02/22/18 01:09 DC 02/22/18 01:07 20 MG Prednisone (Prednisone) 50 mg 1X ONCE 02/22/18 01:00 02/22/18 01:09 DC 02/22/18 01:06 50 MG Allergies Allergies Allergies Coded Allergies Type Severity Reaction Last Updated Verified nitrofurantoin Allergy Intermediate Itching 02/22/18 Yes Physical Exam Physical Exam Constitutional: Moderately acute distress, non-toxic appearance. [] HENT: Normocephalic, atraumatic, bilateral external ears normal, oropharynx moist, no oral exudates, nose normal. [] Eyes: PERRLA, EOMI, conjunctiva normal, no discharge. [] Neck: Normal range of motion, no tenderness, supple, no stridor. [] Cardiovascular:Heart rate regular rhythm, no murmur [] Lungs & Thorax: Bilateral breath sounds equal at apex on auscultation [] Abdomen: Bowel sounds normal, soft, no tenderness, no masses, no pulsatile masses. [] Old surgical scars. Skin: Warm, dry, no erythema, mild diffuse rash. [] Back: No tenderness, no CVA tenderness. [] Extremities: No tenderness, no cyanosis, no clubbing, ROM intact, no edema. [] Neurologic: Alert and oriented X 3, normal motor function, normal sensory function, no focal deficits noted. [] Psychologic: Affect anxious, judgement normal, mood normal. [] Current Patient Data Vital Signs Vital Signs Date Time Temp Pulse Resp B/P (MAP) Pulse Ox O2 Delivery O2 Flow Rate FiO2 02/22/18 00:10 98.4 79 20 102/65 (77) 99 Room Air Lab Results Reviewed last labs on record. EKG EKG [] Radiology/Procedures Radiology/Procedures [] Course & Med Decision Making Course & Med Decision Making Pertinent Labs and Imaging studies reviewed. (See chart for details), Pt. to take Prednisone 50 mg daily x 5 days. Benadryl 25- 50 mg four times a day as needed. Zantac 150 twice a day. Followup with primary. [] Final Impression Final Impression 1. Itching pruritus[] 2. Suspect delayed drug reaction Dragon Disclaimer Dragon Disclaimer This electronic medical record was generated, in whole or in part, using a voice recognition dictation system. Discharge Summary Visit Information Final Diagnosis Problems Medical Problems: (1) Allergic Status: Acute Brief Hospital Course Allergies Allergies Coded Allergies Type Severity Reaction Last Updated Verified nitrofurantoin Allergy Intermediate Itching 02/22/18 Yes Vital Signs Vital Signs Date Time Temp Pulse Resp B/P (MAP) Pulse Ox O2 Delivery O2 Flow Rate FiO2 02/22/18 00:10 98.4 79 20 102/65 (77) 99 Room Air Brief Hospital Course Ms. Reynolds is a 43 old female who presented with hx. on set of rash after taking nitrofurantoin. Suspect delayed drug reactions. Discharge Information Condition at Discharge: Stable Disposition/Orders: D/C to Home Dischare Medications Current Medications Prednisone (Prednisone) 50 mg 1X ONCE PO Last administered on 02/22/18at 01:06 ; Admin Dose 50 MG; Start 02/22/18 at 01:00; Stop 02/22/18 at 01:09; Status DC Famotidine (Pepcid) 20 mg 1X ONCE PO Last administered on 02/22/18at 01:07; Admin Dose 20 MG; Start 02/22/18 at 01:00; Stop 02/22/18 at 01:09; Status DC Active Scripts Active Zantac (Ranitidine Hcl) 150 Mg Tablet 150 Mg PO BID 15 Days Prednisone 50 Mg Tablet 50 Mg PO DAILY 5 Days Ventolin Hfa Inhaler (Albuterol Sulfate) 18 Gm Hfa.aer.ad 1 Puff IH Q4HRS PRN Reported Plaquenil (Hydroxychloroquine Sulfate) 200 Mg Tablet 200 Mg PO BID Sertraline Hcl 25 Mg Tablet 1 Tab PO HS Protonix (Pantoprazole Sodium) 40 Mg Tablet.dr 40 Mg PO DAILYAC Topamax (Topiramate) 200 Mg Tablet 1 Tab PO HS Xanax (Alprazolam) 1 Mg Tablet 1 Tab PO HS Dragon Disclaimer This chart was dictated in whole or in part using Voice Recognition software in a busy, high-work load, and often noisy Emergency Department environment. It may contain unintended and wholly unrecognized errors or omissions. EMELY CHANG MD Feb 22, 2018 00:08
[2018-02-22] MEDS ORDERED: FAMOTIDINE 20 MG TABLET PO ONE (01:00)
[2018-02-22] MEDS ORDERED: predniSONE 10 MG TABLET PO ONE (01:00)
[2018-02-22] MEDS ORDERED: RANI150T21 PO (01:04)
[2018-02-22] MEDS ORDERED: PRED50TA PO (01:04)
[2018-02-22 01:05] VITALS: BP 110/60
== END 2018-02-22 01:10 | disposition home or self-care (01) ==
LOC: ER 00:03
DX: T78.40XA Allergy, unspecified, initial encounter (principal); L29.9 Pruritus, unspecified; F41.9 Anxiety disorder, unspecified; K21.9 Gastro-esophageal reflux disease without esophagitis; M19.90 Unspecified osteoarthritis, unspecified site; Z86.2 Personal history of diseases of the blood and blood-forming organs and certain disorders involving the immune mechanism; Z88.8 Allergy status to other drugs, medicaments and biological substances; X58.XXXA Exposure to other specified factors, initial encounter
CPT/HCPCS: 99283; J7512

== ENCOUNTER → 2018-02-26 | Outpatient (CLI) | payer OTHER ==
[2018-02-22 01:05] VITALS: BP 110/60
[~2018-02-26] MED LIST changes: +RANI150T21 PO
[2018-02-26 13:34] LABS: BACTERIA,URINE MANY /HPF (0-FEW); BILIRUBIN,URINE NEG (NEG); CLARITY,URINE CLOUDY; COLOR,URINE AMBER; GLUCOSE,URINE NEG (NEG); NITRITE,URINE POS (NEG); SQUAMOUS EPITHELIAL CELL,UR FEW /LPF; UROBILINOGEN,URINE 0.2 mg/dL (0.2 mg/dL); WBC,URINE 20-40 /HPF (0-4)
== END | disposition home or self-care (01) ==
LOC: LAB 13:05
PROVIDERS: ATTEND Physician Assistant Medical
DX: R30.0 Dysuria (principal)
CPT/HCPCS: 81001; 87086

== ENCOUNTER 2018-02-27 16:57 | Emergency (ER) | payer OTHER ==
[2018-02-27] MEDS ORDERED: HYDROmorphone PF 1 MG/ML DISP.SYRIN IV ONE ×2 (17:30→18:00)
[2018-02-27] MEDS ORDERED: ONDANSETRON PF 4 MG/2 ML VIAL. IV ONE (17:30)
--- NOTE | 2018-02-27 17:31 | PHYS DOC ---
Past History Past Medical History: Other Past Surgical History: No Surgical History Alcohol Use: None Drug Use: None Adult General Chief Complaint Chief Complaint: ABDOMINAL PAIN HPI HPI 43-year-old female presents with abdominal pain and low back pain. The patient states that she was at home today after work and began have itching all over her body. The itching has resolved but it was replaced with significant pain and discomfort in her lower back and abdomen. This time it seemed to be mostly in her lower back. She is finding it very difficult to lie still due to the discomfort. Patient was diagnosed yesterday with UTI and started an antibiotic today. Patient has not had kidney stones in the past. She doesn't history of lupus. She never had feeling like this in the past. She was feeling well prior to the beginning of this episode. She denies fever or chills. Review of Systems Review of Systems Constitutional: Denies fever or chills [] Eyes: Denies change in visual acuity, redness, or eye pain [] HENT: Denies nasal congestion or sore throat [] Respiratory: Denies cough or shortness of breath [] Cardiovascular: No additional information not addressed in HPI [] GI: Diffuse abdominal pain[] : Denies dysuria or hematuria [] Musculoskeletal: Low back pain[] Integument: Denies rash or skin lesions [] Neurologic: Denies headache, focal weakness or sensory changes [] Endocrine: Denies polyuria or polydipsia [] All other systems were reviewed and found to be within normal limits, except as documented in this note. Current Medications Current Medications Current Medications Medications (Trade) Dose Ordered Sig/[facility] Start Time Stop Time Status Last Admin Dose Admin Hydromorphone HCl (Dilaudid) 1 mg 1X ONCE 02/27/18 17:30 02/27/18 17:31 Ondansetron HCl (Zofran) 4 mg 1X ONCE 02/27/18 17:30 02/27/18 17:31 Allergies Allergies Allergies Coded Allergies Type Severity Reaction Last Updated Verified nitrofurantoin Allergy Intermediate Itching 02/22/18 Yes Physical Exam Physical Exam Constitutional: Well developed, well nourished, no acute distress, non-toxic appearance. Unable to lie still. [] HENT: Normocephalic, atraumatic, bilateral external ears normal, oropharynx moist, no oral exudates, nose normal. [] Eyes: PERRLA, EOMI, conjunctiva normal, no discharge. [] Neck: Normal range of motion, no tenderness, supple, no stridor. [] Cardiovascular:Heart rate regular rhythm, no murmur [] Lungs & Thorax: Bilateral breath sounds clear to auscultation [] Abdomen: Bowel sounds normal, soft, no tenderness, no masses, no pulsatile masses. [] Skin: Warm, dry, no erythema, no rash. [] Back: Mild low back tenderness[] Extremities: No tenderness, no cyanosis, no clubbing, ROM intact, no edema. [] Neurologic: Alert and oriented X 3, normal motor function, normal sensory function, no focal deficits noted. [] Psychologic: Affect normal, judgement normal, mood normal. [] Current Patient Data Vital Signs Vital Signs Date Time Temp Pulse Resp B/P (MAP) Pulse Ox O2 Delivery O2 Flow Rate FiO2 02/27/18 17:11 97.7 30 100 EKG EKG [] Radiology/Procedures Radiology/Procedures [] Impressions: PQRS Compliance statement: One or more of the following individualized dose reduction techniques were utilized for this examination: 1. Automated exposure control. 2. Adjustment of the mA and/or kV according to patient size. 3. Use of iterative reconstruction technique. Indication:SEVERE LOW BACK/BILATERAL FLANK PAIN WITH MICROSCOPIC HEMATURIA ONSET 2 HOURS AGO TECHNIQUE: CT abdomen and pelvis without IV contrast with multiplanar reformats. COMPARISON: CT chest from 06/19/2017 FINDINGS: Limited evaluation of solid abdominal and pelvic organs due to lack of IV contrast. Heart is normal in size. No pericardial or pleural effusion. Stable bibasilar subpleural interstitial opacities. Noncontrast appearance of the liver, spleen, gallbladder, pancreas, adrenals within normal limits. No nephrolithiasis or hydronephrosis. No enlarged retroperitoneal or pelvic adenopathy. Trace amount of free pelvic fluid. Small sliding hiatal hernia. No bowel obstruction. Normal appendix. Anteverted uterus. Urinary bladder demonstrates no radiopaque stones. No pneumoperitoneum. No suspicious bony lesion. IMPRESSION: Limited evaluation of solid abdominal and pelvic organs due to lack of IV contrast. 1. No nephrolithiasis or hydronephrosis. 2. Normal appendix. No bowel obstruction. 3. Bilateral stable lung base findings likely early evidence of interstitial lung disease. Electronically signed by: Nathan Peguero DO (02/27/2018 5:58 PM) [facility] DICTATED AND SIGNED BY: NATHAN PEGUERO DO DATE: 02/27/18 [id number] CC: YOLANDA ALVARES DO; ASHLEY JONES Course & Med Decision Making Course & Med Decision Making Pertinent Labs and Imaging studies reviewed. (See chart for details) Patient's CT of abdomen and pelvis is unremarkable. She does have interstitial lung findings. See official reading for details. The patient has a critical troponin of 2.8 and a white count of 1.8. I will replace her potassium by IV. The patient has been in excruciating pain. I will give her 2 mg of Dilaudid and 100 g of fentanyl thus far. The patient seems to be having her pain controlled at this time. I discussed the patient with Dr. Senior and he would like to admit the patient at [facility]. She will go by ambulance. [] Dragon Disclaimer Dragon Disclaimer This electronic medical record was generated, in whole or in part, using a voice recognition dictation system. Departure Departure: Impression: Primary Impression: Leukopenia Additional Impressions: Abdominal pain Hypokalemia Disposition: XFER T-[facility] Admitting Physician: Carley Senior Condition: GUARDED Referrals: ASHLEY JONES (PCP) Problem Qualifiers YOLANDA ALVARES DO Feb 27, 2018 17:31
[2018-02-27] MEDS ORDERED: IV NORMAL SALINE 1,000ML 1,000 ML IV ONE (17:45)
[2018-02-27 17:52] LABS: BASO % 0 % (0-3); EOS % 0 % (0-3); HEMATOCRIT 38.9 % (36.0-47.0); HEMOGLOBIN 12.4 g/dL (12.0-15.5); LYMPH # 0.5 x10^3/uL (1.0-4.8); LYMPH % 27 % (24-48); MEAN CORPUSCULAR HEMOGLOBIN 27 pg (25-35); MEAN CORPUSCULAR HGB CONC 32 g/dL (31-37); MEAN CORPUSCULAR VOLUME 84 fL (79-100); MONO % 0 % (0-9); NEUT # 1.3 x10^3uL (1.8-7.7); NEUT % 73 % (31-73); PLATELET COUNT 292 x10^3/uL (140-400); RED BLOOD COUNT 4.62 x10^6/uL (3.50-5.40); RED CELL DISTRIBUTION WIDTH 13.9 % (11.5-14.5)
[2018-02-27 17:56] LABS: WHITE BLOOD COUNT 1.8 x10^3/uL (4.0-11.0)
[2018-02-27 18:01] LABS: ALBUMIN 3.3 g/dL (3.4-5.0); ALBUMIN/GLOBULIN RATIO 0.8 (1.0-1.7); CALCIUM 8.5 mg/dL (8.5-10.1); CREATININE 0.9 mg/dL (0.6-1.0); GFR 83.5; TOTAL BILIRUBIN 0.2 mg/dL (0.2-1.0); TOTAL PROTEIN 7.5 g/dL (6.4-8.2)
--- NOTE | 2018-02-27 18:02 | RAD ---
PQRS Compliance statement: One or more of the following individualized dose reduction techniques were utilized for this examination: 1. Automated exposure control. 2. Adjustment of the mA and/or kV according to patient size. 3. Use of iterative reconstruction technique. Indication:SEVERE LOW BACK/BILATERAL FLANK PAIN WITH MICROSCOPIC HEMATURIA ONSET 2 HOURS AGO TECHNIQUE: CT abdomen and pelvis without IV contrast with multiplanar reformats. COMPARISON: CT chest from 06/19/2017 FINDINGS: Limited evaluation of solid abdominal and pelvic organs due to lack of IV contrast. Heart is normal in size. No pericardial or pleural effusion. Stable bibasilar subpleural interstitial opacities. Noncontrast appearance of the liver, spleen, gallbladder, pancreas, adrenals within normal limits. No nephrolithiasis or hydronephrosis. No enlarged retroperitoneal or pelvic adenopathy. Trace amount of free pelvic fluid. Small sliding hiatal hernia. No bowel obstruction. Normal appendix. Anteverted uterus. Urinary bladder demonstrates no radiopaque stones. No pneumoperitoneum. No suspicious bony lesion. IMPRESSION: Limited evaluation of solid abdominal and pelvic organs due to lack of IV contrast. 1. No nephrolithiasis or hydronephrosis. 2. Normal appendix. No bowel obstruction. 3. Bilateral stable lung base findings likely early evidence of interstitial lung disease. Electronically signed by: Nathan Peguero DO (02/27/2018 5:58 PM) [facility]
[2018-02-27 18:06] LABS: POTASSIUM 2.8 mmol/L (3.5-5.1)
[2018-02-27 18:21] LABS: % BANDS 8 % (0-9); % LYMPHS 20 % (24-48); % MONOS 2 % (0-10); % SEGS 70 % (35-66); PLATELET CLUMP PRESENT; PLT ESTIMATE ADEQUATE (ADEQUATE)
[2018-02-27 18:22] LABS: POLYCHROMASIA SLIGHT
[2018-02-27 18:23] LABS: ANISOCYTOSIS SLIGHT; SMUDGE CELLS PRESENT
[2018-02-27] MEDS ORDERED: POTASSIUM CHLORIDE 20MEQ 200 ML IV ONE (18:30)
[2018-02-27] MEDS ORDERED: POTASSIUM CL 40MEQ IN 0.9%NACL 1,000 ML IV ONE (18:30)
[2018-02-27] MEDS ORDERED: KETOROLAC 30 MG/ML VIAL. IV ONE (18:30)
[2018-02-27] MEDS ORDERED: KETOROLAC 30 MG/ML VIAL. ONE (18:33)
[2018-02-27] MEDS ORDERED: IV NORMAL SALINE 100ML 100 ML ONE (18:37)
[2018-02-27 19:01] LABS: BILIRUBIN,URINE NEG (NEG); CLARITY,URINE HAZY; COLOR,URINE STRAW; GLUCOSE,URINE NEG (NEG); NITRITE,URINE NEG (NEG); UROBILINOGEN,URINE 0.2 mg/dL (0.2 mg/dL)
[2018-02-27 19:04] LABS: BACTERIA,URINE FEW /HPF (0-FEW); SQUAMOUS EPITHELIAL CELL,UR OCC /LPF
[2018-02-27 20:45] VITALS: BP 110/62
[2018-02-27] MEDS ORDERED: diphenhydrAMINE HCL 25 MG CAPSULE PO ONE (21:00)
== END 2018-02-27 20:55 | disposition short-term general hospital (02) ==
LOC: ER 16:57
DX: D72.819 Decreased white blood cell count, unspecified (principal); E87.6 Hypokalemia; R10.84 Generalized abdominal pain; M54.5 Low back pain; L29.9 Pruritus, unspecified; Z88.8 Allergy status to other drugs, medicaments and biological substances
CPT/HCPCS: 36415; 74176; 80053; 81001; 83690; 85007; 85025; 87086; 96365; 96366; 96368; 96375; 99285; J0696; J1170; J1885; J2405; J3010; Q0163; J7030

== ENCOUNTER → 2018-03-20 | Outpatient (CLI) | payer OTHER ==
[2018-02-27 20:45] VITALS: BP 110/62
[~2018-03-20] MED LIST changes: +BELI200A IM; +BUPR75TA6 PO; +NIFE30TA15 PO; +RANI-376 PO; +RANI150T2 PO; -RANI150T21 PO; +TOPI100T8 PO
[2018-03-20 08:57] LABS: BASO % 1 % (0-3); EOS % 0 % (0-3); HEMATOCRIT 36.2 % (36.0-47.0); HEMOGLOBIN 11.8 g/dL (12.0-15.5); LYMPH # 0.8 x10^3/uL (1.0-4.8); LYMPH % 30 % (24-48); MEAN CORPUSCULAR HEMOGLOBIN 27 pg (25-35); MEAN CORPUSCULAR HGB CONC 33 g/dL (31-37); MEAN CORPUSCULAR VOLUME 83 fL (79-100); MONO # 0.3 x10^3/uL (0.0-1.1); MONO % 12 % (0-9); NEUT # 1.6 x10^3uL (1.8-7.7); NEUT % 57 % (31-73); PLATELET COUNT 247 x10^3/uL (140-400); RED BLOOD COUNT 4.35 x10^6/uL (3.50-5.40); RED CELL DISTRIBUTION WIDTH 14.4 % (11.5-14.5); WHITE BLOOD COUNT 2.8 x10^3/uL (4.0-11.0)
[2018-03-20 09:30] LABS: ALBUMIN 3.6 g/dL (3.4-5.0); ALBUMIN/GLOBULIN RATIO 0.8 (1.0-1.7); CALCIUM 8.6 mg/dL (8.5-10.1); CREATININE 0.8 mg/dL (0.6-1.0); GFR 95.6; POTASSIUM 3.6 mmol/L (3.5-5.1); TOTAL BILIRUBIN 0.3 mg/dL (0.2-1.0)
[2018-03-20 10:06] LABS: BACTERIA,URINE 0 /HPF (0-FEW); BILIRUBIN,URINE NEG (NEG); CLARITY,URINE HAZY; COLOR,URINE AMBER; GLUCOSE,URINE NEG (NEG); NITRITE,URINE NEG (NEG); RBC,URINE RARE /HPF (0-2); SQUAMOUS EPITHELIAL CELL,UR OCC /LPF; UROBILINOGEN,URINE 0.2 mg/dL (0.2 mg/dL); WBC,URINE RARE /HPF (0-4)
[2018-03-20 13:31] LABS: FREE T4 0.69 ng/dL (0.76-1.46); THYROID STIM HORMONE (TSH) 1.662 uIU/mL (0.358-3.740)
== END | disposition home or self-care (01) ==
LOC: LAB 08:25
PROVIDERS: ATTEND Registered Nurse
DX: Z13.6 Encounter for screening for cardiovascular disorders (principal); Z13.29 Encounter for screening for other suspected endocrine disorder; E55.9 Vitamin D deficiency, unspecified; D50.9 Iron deficiency anemia, unspecified; Z86.19 Personal history of other infectious and parasitic diseases
CPT/HCPCS: 36415; 80053; 80061; 81001; 82306; 83540; 83550; 84439; 84443; 85025

== ENCOUNTER → 2018-03-24 | Outpatient (CLI) | payer OTHER ==
[2018-02-27 20:45] VITALS: BP 110/62
--- NOTE | 2018-03-24 14:28 | RAD ---
EXAM: Bilateral lower extremity arterial Doppler sonogram. HISTORY: Lower extremity numbness. TECHNIQUE: Turk scale and color Doppler sonographic imaging of the lower extremity arteries with spectral waveform analysis was performed. COMPARISON: None. FINDINGS: There are normal triphasic waveforms throughout the bilateral lower extremity arteries, with exception of a biphasic waveform within the left dorsalis pedis artery. The bilateral lower extremity artery peak systolic velocities are within normal limits. No hemodynamically significant stenosis or occlusion is seen. IMPRESSION: No evidence of hemodynamically significant stenosis or occlusion involving the lower extremity arteries. Electronically signed by: Yaa Urban MD (03/24/2018 2:25 PM) [id number]
--- NOTE | 2018-03-24 16:08 | RAD ---
DATE: 03/24/2018 EXAM: MAMMO JANAE SCREENING BILATERAL HISTORY: Routine screening COMPARISON: 03/06/2017 This study was interpreted with the benefit of Computerized Aided Detection (CAD). Breast Density: HETERO The breast parenchyma is heterogenously dense, which could reduce sensitivity of mammography. Breast parenchyma level C. FINDINGS: No new or enlarging breast densities are seen. No suspicious microcalcifications are evident. IMPRESSION: Stable mammograms without evidence of malignancy. BI-RADS CATEGORY: 1 NEGATIVE RECOMMENDED FOLLOW-UP: 12M 12 MONTH FOLLOW-UP PQRS compliance statement: Patient information was entered into a reminder system with a target due date for the next mammogram. Mammography is a sensitive method for finding small breast cancers, but it does not detect them all and is not a substitute for careful clinical examination. A negative mammogram does not negate a clinically suspicious finding and should not result in delay in biopsying a clinically suspicious abnormality. "Our facility is accredited by the [employer] Mammography Program."
== END | disposition home or self-care (01) ==
LOC: US 12:45
PROVIDERS: ATTEND Registered Nurse
DX: Z12.31 Encounter for screening mammogram for malignant neoplasm of breast (principal); R20.0 Anesthesia of skin
CPT/HCPCS: 77063; 77067; 93925

== ENCOUNTER 2018-08-11 15:50 | Inpatient (IN) | payer OTHER ==
[~2018-08-11] VITALS: Ht 167.6 cm; Wt 86.2 kg
[~2018-08-11 15:50] MED LIST changes: -BELI200A IM; -BUPR75TA6 PO; -IOHEXOL 240 MG/ML 50ML VIAL. ONE; -IOHEXOL 240 MG/ML 50ML VIAL. PO ONE; -IOHEXOL 300 MG/ML 75 ML VIAL. IV ONE; -NIFE30TA15 PO; -RANI150T2 PO; -TOPI100T8 PO
[2018-08-11] MEDS ORDERED: IV NORMAL SALINE 1,000ML 1,000 ML IV SCH (16:49)
[2018-08-11 17:23] LABS: BASO % 0 % (0-3); EOS % 0 % (0-3); HEMATOCRIT 33.4 % (36.0-47.0); HEMOGLOBIN 10.9 g/dL (12.0-15.5); LYMPH # 0.1 x10^3/uL (1.0-4.8); LYMPH % 1 % (24-48); MEAN CORPUSCULAR HEMOGLOBIN 27 pg (25-35); MEAN CORPUSCULAR HGB CONC 33 g/dL (31-37); MEAN CORPUSCULAR VOLUME 81 fL (79-100); MONO # 0.1 x10^3/uL (0.0-1.1); MONO % 1 % (0-9); NEUT # 10.8 x10^3uL (1.8-7.7); NEUT % 98 % (31-73); PLATELET COUNT 192 x10^3/uL (140-400); RED CELL DISTRIBUTION WIDTH 13.8 % (11.5-14.5)
[2018-08-11] MEDS ORDERED: ONDANSETRON PF 4 MG/2 ML VIAL. IV ONE (17:30)
[2018-08-11 17:36] LABS: ALBUMIN 3.4 g/dL (3.4-5.0); ALBUMIN/GLOBULIN RATIO 0.9 (1.0-1.7); CALCIUM 8.6 mg/dL (8.5-10.1); CREATININE 1.1 mg/dL (0.6-1.0); GFR 66.2; POTASSIUM 4.1 mmol/L (3.5-5.1); TOTAL BILIRUBIN 0.3 mg/dL (0.2-1.0); TOTAL PROTEIN 7.2 g/dL (6.4-8.2)
[2018-08-11 17:37] LABS: BACTERIA,URINE 0 /HPF (0-FEW); BILIRUBIN,URINE NEG (NEG); CLARITY,URINE CLEAR; COLOR,URINE YELLOW; GLUCOSE,URINE NEG (NEG); NITRITE,URINE NEG (NEG); RBC,URINE 0 /HPF (0-2); SQUAMOUS EPITHELIAL CELL,UR OCC /LPF; UROBILINOGEN,URINE 0.2 mg/dL (0.2 mg/dL); WBC,URINE OCC /HPF (0-4)
--- NOTE | 2018-08-11 17:53 | PHYS DOC ---
Past History Past Medical History: Anxiety, GERD, Seizure, Other Past Surgical History: Other Alcohol Use: None Drug Use: None Adult General Chief Complaint Chief Complaint: ABDOMINAL PAIN HPI HPI Patient is a 43 year old female who presents with complaint of abdominal pain. Patient states her symptoms started this morning. States that she has been having daily worsening pain since onset. Saw her primary physician who completed blood work and a CT of the abdomen and pelvis earlier today which were reported as normal. Was prescribed hydrocodone for pain, however she states that since her visit she has had continued worsening pain that is not controlled with hydrocodone. Patient thus came to the emergency department for further evaluation. Has had history of uterine ablation and bilateral tubal ligation. Notes that the pain starts in her lower pelvis and travels up towards her upper abdomen. Denies any associated fever or vomiting or change in stool habit. Review of Systems Review of Systems Constitutional: Denies fever or chills [] Eyes: Denies change in visual acuity, redness, or eye pain [] HENT: Denies nasal congestion or sore throat [] Respiratory: Denies cough or shortness of breath [] Cardiovascular: No additional information not addressed in HPI [] GI: Abdominal pain, denies nausea, vomiting, bloody stools or diarrhea [] : Denies dysuria or hematuria [] Musculoskeletal: Denies back pain or joint pain [] Integument: Denies rash or skin lesions [] Neurologic: Denies headache, focal weakness or sensory changes [] All other systems were reviewed and found to be within normal limits, except as documented in this note. Current Medications Current Medications Current Medications Medications (Trade) Dose Ordered Sig/[facility] Start Time Stop Time Status Last Admin Dose Admin Fentanyl Citrate (Fentanyl 2ml Vial) 50 mcg PRN Q15MIN PRN 08/11/18 17:00 08/12/18 16:59 08/11/18 17:15 50 MCG Ondansetron HCl (Zofran) 4 mg 1X ONCE 08/11/18 17:30 08/11/18 17:31 DC 08/11/18 17:14 4 MG Sodium Chloride 1,000 ml @ 1,000 mls/hr Q1H 08/11/18 16:49 08/11/18 17:48 DC 08/11/18 17:15 1,000 MLS/HR Allergies Allergies Allergies Coded Allergies Type Severity Reaction Last Updated Verified nitrofurantoin Allergy Intermediate Itching 1/13/19 Yes Physical Exam Physical Exam Constitutional: Alert, afebrile, appears in moderate discomfort. [] HENT: Normocephalic, atraumatic, bilateral external ears normal, oropharynx moist, no oral exudates, nose normal. [] Eyes: PERRLA, EOMI, conjunctiva normal, no discharge. [] Neck: Normal range of motion, no tenderness, supple, no stridor. [] Cardiovascular:Heart rate regular rhythm, no murmur [] Lungs & Thorax: Bilateral breath sounds clear to auscultation [] Abdomen: Bowel sounds normal, soft, suprapubic tenderness to palpation, no masses, no pulsatile masses. [] Skin: Warm, dry, no erythema, no rash. [] Back: No tenderness, no CVA tenderness. [] Extremities: No tenderness, no cyanosis, no clubbing, ROM intact, no edema. [] Neurologic: Alert and oriented X 3, normal motor function, normal sensory function, no focal deficits noted. [] Current Patient Data Vital Signs Vital Signs Date Time Temp Pulse Resp B/P (MAP) Pulse Ox O2 Delivery O2 Flow Rate FiO2 08/11/18 17:15 97 Room Air 08/11/18 15:58 99.2 116 20 Lab Results Laboratory Tests Test 08/11/18 16:34 08/11/18 17:10 Urine Collection Type Unknown Urine Color Yellow Urine Clarity Clear Urine pH 5.5 Urine Specific [place] 1.015 Urine Protein Neg (NEG-TRACE) Urine Glucose (UA) Neg mg/dL (NEG) Urine Ketones (Stick) Neg mg/dL (NEG) Urine Blood Neg (NEG) Urine Nitrite Neg (NEG) Urine Bilirubin Neg (NEG) Urine Urobilinogen Dipstick 0.2 mg/dL (0.2 mg/dL) Urine Leukocyte Esterase Neg (NEG) Urine RBC 0 /HPF (0-2) Urine WBC Occ /HPF (0-4) Urine Squamous Epithelial Cells Occ /LPF Urine Bacteria 0 /HPF (0-FEW) Urine Mucus Slight /LPF White Blood Count 11.0 x10^3/uL (4.0-11.0) Red Blood Count 4.10 x10^6/uL (3.50-5.40) Hemoglobin 10.9 g/dL (12.0-15.5) L Hematocrit 33.4 % (36.0-47.0) L Mean Corpuscular Volume 81 fL (79-100) Mean Corpuscular Hemoglobin 27 pg (25-35) Mean Corpuscular Hemoglobin Concent 33 g/dL (31-37) Red Cell Distribution Width 13.8 % (11.5-14.5) Platelet Count 192 x10^3/uL (140-400) Neutrophils (%) (Auto) 98 % (31-73) H Lymphocytes (%) (Auto) 1 % (24-48) L Monocytes (%) (Auto) 1 % (0-9) Eosinophils (%) (Auto) 0 % (0-3) Basophils (%) (Auto) 0 % (0-3) Neutrophils # (Auto) 10.8 x10^3uL (1.8-7.7) H Lymphocytes # (Auto) 0.1 x10^3/uL (1.0-4.8) L Monocytes # (Auto) 0.1 x10^3/uL (0.0-1.1) Eosinophils # (Auto) 0.0 x10^3/uL (0.0-0.7) Basophils # (Auto) 0.0 x10^3/uL (0.0-0.2) Sodium Level 136 mmol/L (136-145) Potassium Level 4.1 mmol/L (3.5-5.1) Chloride Level 103 mmol/L (98-107) Carbon Dioxide Level 18 mmol/L (21-32) L Anion Gap 15 (6-14) H Blood Urea Nitrogen 15 mg/dL (7-20) Creatinine 1.1 mg/dL (0.6-1.0) H Estimated GFR (Cockcroft-Gault) 66.2 BUN/Creatinine Ratio 14 (6-20) Glucose Level 92 mg/dL (70-99) Calcium Level 8.6 mg/dL (8.5-10.1) Total Bilirubin 0.3 mg/dL (0.2-1.0) Aspartate Amino Transferase (AST) 16 U/L (15-37) Alanine Aminotransferase (ALT) 17 U/L (14-59) Alkaline Phosphatase 67 U/L (46-116) Total Protein 7.2 g/dL (6.4-8.2) Albumin 3.4 g/dL (3.4-5.0) Albumin/Globulin Ratio 0.9 (1.0-1.7) L EKG EKG Not performed[] Radiology/Procedures Radiology/Procedures [address] [address] IMAGING REPORT Signed PATIENT: HOMA DOMINIQUE ACCOUNT: [id number] : 1975 LOCATION: ER AGE: 43 SEX: F EXAM STATUS: REG ER ORD. PHYSICIAN: WEN VENTURA MD REASON: severe pelvic pain PROCEDURE: US PELVIS W/TV Pelvic ultrasound to include transabdominal and transvaginal imaging 08/11/2018 CLINICAL HISTORY: Severe pelvic pain. TECHNIQUE: Using the distended urinary bladder as a sonographic window, a real-time ultrasound examination of the pelvis was performed. Additionally in an attempt to better evaluate the uterus and adnexa, a transvaginal ultrasound study was performed. Multiple images were obtained. FINDINGS: Comparison is made to a CT scan of the abdomen and pelvis performed earlier today. The uterus is mildly enlarged. It measures 10.0 x 5.9 x 5.8 cm in longitudinal, transverse, and AP dimensions. The endometrial echo complex measures 2.5 mm in thickness which is within normal limits. Hypoechoic masses are seen involving the anterior aspect of the mid uterine body and within the right posterior lateral aspect of the mid uterine body which measure 1.9 and 1.7 cm in size. They are consistent with uterine fibroids. No additional abnormality of the uterus is seen. Both ovaries are within normal limits in size. The right ovary measures 3.2 x 2.1 x 2.4 cm in size. The left ovary measures 2.6 x 1.9 x 1.5 cm in size. Prominent follicles are seen within the right ovary which measure 1 to 1.6 cm in size. A very small amount of free fluid is seen within the pelvis. No adnexal mass is seen. IMPRESSION: 1. Mildly enlarged fibroid uterus. 2. Very small amount of free fluid is seen within the pelvis. Electronically signed by: Gary Butcher MD (08/11/2018 6:11 PM) [facility] DICTATED AND SIGNED BY: GARY BUTCHER MD DATE: 08/11/181810 CC: WEN VENTURA MD; ASHLEY JONES ~ [] Course & Med Decision Making Course & Med Decision Making Pertinent Labs and Imaging studies reviewed. (See chart for details) Patient was started on IV fentanyl and Zofran. Patient's ultrasound shows no evidence of ovarian torsion or other significant findings to explain patient's current symptoms. After treatment with fentanyl, the patient states she is still having significant pain. Given that her pain is not well controlled with oral hydrocodone at home or IV medication in the emergency department, I do believe the patient will need to be admitted for further pain control. Patient's CBC does show a significant leftward shift raising possibility for possible pelvic infection. A GC swab is being collected at this time and sent. Patient notes she had a pelvic exam completed by her primary and was told that she may have a yeast infection but has not taken medications for this. Pelvic inflammatory disease remains as a possible differential diagnosis. I spoke with Dr. Senior who is agreed to accept patient for pain control and empiric therapy using Rocephin and doxycycline for possible pelvic inflammatory disease. Spoke with patient regarding plan of care and she was in agreement at time of disposition.[] Dragon Disclaimer Dragon Disclaimer This electronic medical record was generated, in whole or in part, using a voice recognition dictation system. Departure Departure: Impression: Primary Impression: Intractable abdominal pain Disposition: ADMITTED INPATIENT Admitting Physician: Carley Senior Condition: STABLE Referrals: ASHLEY JONES (PCP) WEN VENTURA MD Aug 11, 2018 17:52
--- NOTE | 2018-08-11 18:14 | RAD ---
Pelvic ultrasound to include transabdominal and transvaginal imaging 08/11/2018 CLINICAL HISTORY: Severe pelvic pain. TECHNIQUE: Using the distended urinary bladder as a sonographic window, a real-time ultrasound examination of the pelvis was performed. Additionally in an attempt to better evaluate the uterus and adnexa, a transvaginal ultrasound study was performed. Multiple images were obtained. FINDINGS: Comparison is made to a CT scan of the abdomen and pelvis performed earlier today. The uterus is mildly enlarged. It measures 10.0 x 5.9 x 5.8 cm in longitudinal, transverse, and AP dimensions. The endometrial echo complex measures 2.5 mm in thickness which is within normal limits. Hypoechoic masses are seen involving the anterior aspect of the mid uterine body and within the right posterior lateral aspect of the mid uterine body which measure 1.9 and 1.7 cm in size. They are consistent with uterine fibroids. No additional abnormality of the uterus is seen. Both ovaries are within normal limits in size. The right ovary measures 3.2 x 2.1 x 2.4 cm in size. The left ovary measures 2.6 x 1.9 x 1.5 cm in size. Prominent follicles are seen within the right ovary which measure 1 to 1.6 cm in size. A very small amount of free fluid is seen within the pelvis. No adnexal mass is seen. IMPRESSION: 1. Mildly enlarged fibroid uterus. 2. Very small amount of free fluid is seen within the pelvis. Electronically signed by: Gary Butcher MD (08/11/2018 6:11 PM) [facility]
[2018-08-11] MEDS ORDERED: IV NORMAL SALINE 50ML 50 ML ONE (18:39)
[2018-08-11] MEDS ORDERED: cefTRIAXone SODIUM 1 GM VIAL ONE (18:39)
[2018-08-11] MEDS ORDERED: DOXYCYCLINE HYCLATE 100 MG TABLET PO ONE (18:45)
[2018-08-11] MEDS: IV NORMAL SALINE 1,000ML 1,000 ML IV SCH (18:47)
[2018-08-11] MEDS: MORPHINE SULFATE 4 MG/ML DISP.SYRIN. IV PRN ×2 (18:48→21:32)
[2018-08-11 19:30] VITALS: BP 112/70
[2018-08-11] MEDS ORDERED: RANI150T2 PO (20:15)
[2018-08-11] MEDS ORDERED: TOPI100T8 PO (20:15)
[2018-08-11] MEDS ORDERED: NIFE30TA15 PO (20:15)
[2018-08-11] MEDS ORDERED: BUPR75TA6 PO (20:15)
[2018-08-11] MEDS: ACETAMINOPHEN 325 MG TABLET PO PRN (20:24)
[2018-08-11] MEDS: ONDANSETRON PF 4 MG/2 ML VIAL. IV PRN (21:30)
[2018-08-11] MEDS ORDERED: BELI200A IM (21:41)
[2018-08-11] MEDS ORDERED: TOPIRAMATE 100 MG TABLET. PO SCH (22:00)
[2018-08-11] MEDS ORDERED: FAMOTIDINE 20 MG TABLET PO PRN (22:00)
[2018-08-11 22:52] VITALS: BP 97/61
--- NOTE | 2018-08-11 23:26 | NUR ---
The patient, HOMA DOMINIQUE, 43 y/o, F admitted by PREM SCHILLING MD, was given written information regarding hospital policies, unit procedures and contact persons. Pt assisted onto the unit via rney accompanied by EMS personnel. Pt transferred self from gurney to bed. Pt has been having abdominal pain since this morning, she went into the [facility] and they sent her home with hydrocodone. The pain continually increased with no relief from the pain medication, pt came back into the ED this evening. Valuables were checked and left in room with pt.
[2018-08-12] MEDS: ACETAMINOPHEN 325 MG TABLET PO PRN ×2 (00:24→06:04)
[2018-08-12] MEDS: IV NORMAL SALINE 1,000ML 1,000 ML IV SCH ×2 (02:05→10:30)
[2018-08-12] MEDS: MORPHINE SULFATE 4 MG/ML DISP.SYRIN. IV PRN (02:06)
[2018-08-12 03:35] VITALS: BP 90/57
[2018-08-12 06:00] VITALS: BP 89/58
[2018-08-12 06:08] LABS: BASO % 0 % (0-3); EOS # 0.2 x10^3/uL (0.0-0.7); EOS % 3 % (0-3); HEMATOCRIT 33.8 % (36.0-47.0); HEMOGLOBIN 10.9 g/dL (12.0-15.5); LYMPH # 0.2 x10^3/uL (1.0-4.8); LYMPH % 2 % (24-48); MEAN CORPUSCULAR HEMOGLOBIN 27 pg (25-35); MEAN CORPUSCULAR HGB CONC 32 g/dL (31-37); MEAN CORPUSCULAR VOLUME 82 fL (79-100); MONO # 0.1 x10^3/uL (0.0-1.1); MONO % 2 % (0-9); NEUT # 8.6 x10^3uL (1.8-7.7); NEUT % 94 % (31-73); PLATELET COUNT 204 x10^3/uL (140-400); RED BLOOD COUNT 4.13 x10^6/uL (3.50-5.40); WHITE BLOOD COUNT 9.2 x10^3/uL (4.0-11.0)
[2018-08-12 06:23] LABS: ALBUMIN 2.5 g/dL (3.4-5.0); ALBUMIN/GLOBULIN RATIO 0.7 (1.0-1.7); CALCIUM 7.2 mg/dL (8.5-10.1); CREATININE 1.2 mg/dL (0.6-1.0); GFR 59.9; POTASSIUM 3.9 mmol/L (3.5-5.1); TOTAL BILIRUBIN 0.4 mg/dL (0.2-1.0)
[2018-08-12] MEDS ORDERED: diphenhydrAMINE HCL 25 MG CAPSULE PO PRN (06:30)
[2018-08-12] MEDS: ONDANSETRON PF 4 MG/2 ML VIAL. IV PRN (07:27)
[2018-08-12] MEDS ORDERED: DOXYCYCLINE HYCLATE 100 MG TABLET PO SCH (07:30)
[2018-08-12] MEDS ORDERED: PANTOPRAZOLE 40 MG TABLET. PO SCH (07:30)
[2018-08-12] MEDS ORDERED: HYDROXYCHLOROQUINE 200 MG TABLET PO SCH (09:00)
[2018-08-12] MEDS ORDERED: buPROPion 75 MG TABLET PO SCH (09:00)
[2018-08-12] MEDS ORDERED: HYDROmorphone PF 1 MG/ML DISP.SYRIN IV/SQ PRN (11:00)
[2018-08-12 11:12] VITALS: BP 88/56
[2018-08-12] MEDS ORDERED: methylPREDNISolone SOD SUCC PF 125 MG/2 ML VIAL. IV ONE (12:00)
--- NOTE | 2018-08-12 15:03 | SSS ---
ADMIT DATE: 08/12/2018 HISTORY OF PRESENT ILLNESS: The patient is a 43-year-old -[place] female patient who presented to the Emergency Room of [facility] with a complaint of lower abdominal pain. She stated symptoms started yesterday morning on the day of admission. She has been having daily worsening pain since onset, so her primary care physician who completed blood work and a CT scan of the abdomen and pelvis on the day of admission, prior to arrival to the Emergency Room and were reported as normal. She was prescribed hydrocodone for pain, but she states that since that her visit, she has had continued worsening pain that is not controlled with hydrocodone. She came into the Emergency Department for further evaluation, has had history of uterine ablation, bilateral tubal ligation. Her pain starts in her lower pelvis and travels up towards her upper abdomen. Denied any associated fever. Denied any nausea or vomiting. She was evaluated in the Emergency Room. Her white cell count was slightly elevated at 11,000 and her hemoglobin was 10, hematocrit 33, MCV 81 and platelet count of 192,000. Her sed rate was 20 mm per hour. Her chemistry showed that she was somewhat acidotic with bicarbonate of only 18. Her creatinine is 1.1 and her C-reactive protein was 31.7 mg. However, her urinalysis was essentially unremarkable. She has had this abdomen and pelvis CT scan and transvaginal abdominal ultrasound. The report stated that using the distended urinary bladder is a sonographic window, real time ultrasound examination of the pelvis was performed, additionally an attempt to better evaluate the uterus and adnexa, transvaginal ultrasound study was performed and the uterus is mildly enlarged. It measures 10 x 5.9 x 4.8 cm longitudinally, transversely and anteroposteriorly. The endometrial echo complex measures 2.5 mm in thickness, which is within normal limits, hypoechoic masses are seen involving the anterior aspect of the mid uterine body and within the right posterolateral aspect of the mid uterine body, which measures 1.9 x 1.7 cm inside are consistent uterine fibroids. No additional abnormality of the uterus is seen. Both ovaries are within normal limits in size. The right ovary measures 3.2 x 2.1 x 2.4 cm in size. The left ovary measures 2.6 x 1.9 x 1.5 cm in size, prominent follicles are seen within the right ovary, which measures 1 to 1.6 cm in size, a very small amount of free fluid is seen within the pelvis. No adnexal masses seen. Her CT scan of the abdomen and pelvis showed that the patient has bibasilar interstitial changes, appears similar, heart size within normal limits. Liver, spleen, bilateral adrenal glands, pancreas and gallbladder are normal in appearance. The abdominal aorta is normal in course and caliber. There are no pathologically enlarged lymph nodes in the abdomen and pelvis. There is no abdominal free fluid. There is no free intraperitoneal air. Trace free fluid is identified within the pelvis, likely physiologic. Oral contrast was administered opacified bowel loops demonstrated normal mucosal fold pattern, small and large bowels are normal in caliber. There is no evidence of bowel obstruction. There is no pericolic inflammatory changes, normal and nondilated appendix is visualized without adjacent inflammatory changes. There was 5 mm hypodense lesion in the posterior interlobar left kidney. It is too small to characterize, statistically favor to representing a small simple cyst. Her kidneys enhance symmetrically. There is no suspicious renal mass. There is no hydronephrosis. There are no suspected calculi within the kidneys, ureters or urinary bladder, uterus is normal in appearance. Follicular changes are identified in the adnexa bilaterally. Urinary bladder is within normal limits given degree of distention. No suspicious osseous abnormalities identified. The patient has bibasilar interstitial changes, appears similar to the prior examination from 02/27/2018. Consideration will be given for subsegmental atelectasis versus chronic interstitial changes. Short term followup CT chest may be of benefit to ensure resolution correlate with any underlying drug toxicity and hypersensitivity pneumonitis. The patient was admitted to [facility] and was started on IV ceftriaxone as well as doxycycline for possible pelvic inflammatory disease, although the patient denied any sexually transmitted diseases. Unfortunately, the patient continued to be hypotensive despite receiving almost more than 2 liters of fluid. Continue to complain of abdominal pain and therefore, a decision was made to transfer her to [facility] ICU for evaluation by the Infectious Disease, host hostess and perhaps surgical team. PAST MEDICAL HISTORY: Significant for systemic lupus erythematosus, seizure disorder, and anxiety. PAST SURGICAL HISTORY: Significant for tubal ligation and right groin MRSA abscess that was incised and drained. ALLERGIES: She is allergic to ROCEPHIN, her last admission to this hospital. HOME MEDICATIONS: Significant for hydroxychloroquine sulfate 200 mg twice a day, nifedipine 30 mg once a day, topiramate 100 mg at bedtime, Wellbutrin 75 mg twice a day, alprazolam 1 mg at bedtime, ranitidine 150 mg at bedtime, Protonix 40 mg once a day. Benlysta, belimumab 200/mL, 1 mL intramuscular once a month. FAMILY HISTORY: She has one sister who is seemingly healthy. Her father is alive at age of 60 and is known to have diabetes and hypertension. Mother is alive at age of 59. She is known to have hypertension. SOCIAL HISTORY: She is and has a son and a daughter. 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 REVIEW OF SYSTEMS: The patient denied any blurring of vision, cataract, glaucoma or macular degeneration. Denied any earache, tinnitus or sensorineural deafness. Denied any nosebleeds, stuffy nose or postnasal drip. Denied any sore throat, sore tongue, toothache, hoarseness of voice or difficulty swallowing. Denied any nausea, vomiting, diarrhea or constipation. Denied any hematemesis, melena, hematochezia. Denied any dysuria, frequency or hematuria. Denied any chest pain, shortness of breath, orthopnea, paroxysmal nocturnal dyspnea. Denied any cough, phlegm or hemoptysis. PHYSICAL EXAMINATION: GENERAL: On arrival to the Emergency Room, she looked well and was clearly in no apparent respiratory distress, pale, but no jaundice, cyanosis, or thyromegaly. No jugular venous distension. No lower limb edema. VITAL SIGNS: Her heart rate was 53, blood pressure was 114/70, temperature was 98.1, respiratory rate was 18 and oxygen saturation was 97% on room air. HEAD, EYES, EARS, NOSE AND THROAT: Showed normocephalic, atraumatic. NECK: Supple. HEART: Showed normal first and second heart sounds noted. No gallop, rub or murmur. CHEST: Clear to auscultation. No crepitation or rhonchi. ABDOMEN: Distended. Tenderness mostly in the suprapubic area. No guarding or rigidity. No organomegaly. All hernial orifices are intact. Bowel sounds normal. NEUROLOGIC: She is awake, alert, responding appropriately. All cranial nerves intact. She moves extremities without difficulty. LABORATORY DATA: Her lab work on arrival to the Emergency Room showed a white cell count of 11,000, hemoglobin 11, hematocrit 33, MCV 81 and platelet count of 192,000 with normal manual differential. Serum sodium was 136, potassium 4.1, chloride 103, bicarbonate 18, anion gap of 15, BUN 15, creatinine 1.1, estimated GFR was 66 mL per minute. Her glucose was 92, calcium was 8.6. Total bilirubin, AST, ALT, alkaline phosphatase were normal. Total protein was 7.2, albumin was 3.4. Urinalysis was essentially unremarkable and as stated, her transabdominal and transvaginal ultrasound showed that she has mildly enlarged fibroid uterus, very small amount of free fluid is seen within the pelvis. The patient was treated with IV antibiotic in the form of ceftriaxone as well as doxycycline for a presumed pelvic inflammatory disease, continued all her other medications; however, the patient continued to be hypotensive despite and continued to have abdominal pain without any obvious explanation and therefore, decision was made to transfer her to [facility] Intensive Care Unit to consult the host hostess as well as Infectious Disease and perhaps the corrugator machine operator. PHYSICAL EXAMINATION: GENERAL: When I saw her this afternoon, she was resting flat in bed, in no apparent distress and pale, but no jaundice, cyanosis, or thyromegaly. No jugular venous distension. No limb edema. VITAL SIGNS: Her heart rate was 93, blood pressure was 188/56, temperature was 98.2, respiratory rate was 15 and oxygen saturation was 100% on room air. HEAD, EYES, EARS, NOSE AND THROAT: Showed normocephalic, atraumatic. NECK: Supple. HEART: Showed normal first and second heart sounds with no gallop, rub or murmur. CHEST: Clear to auscultation. No crepitation or rhonchi. ABDOMEN: Distended with tenderness mostly in the suprapubic area and there is no guarding or rigidity. No organomegaly. All hernial orifices are intact. Bowel sounds normal. NEUROLOGIC: She was awake, alert, responding appropriately. All cranial nerves intact. She moves extremities without difficulty. LABORATORY DATA: Her lab work prior to discharge showed that her white cell count is 9200, hemoglobin 11, hematocrit 33, MCV 82, and platelet count 204,000. Her sedimentation rate was 20 mm per hour. Her serum sodium was 133, potassium 3.9, chloride 103, bicarbonate 19, anion gap of 11, BUN 17, creatinine 1.2, estimated GFR was 59 mL per minute. Her glucose was 89, calcium was 7.2. Total bilirubin, AST, ALT, alkaline phosphatase were normal. Total protein 6, albumin was 2.5 and C-reactive protein was 32 mg/dL. The patient was transferred to [facility] with continuous severe abdominal pain, hypotension, septic versus hypovolemic. She has received more than 2 liters of fluid. Other medical problems include systemic lupus erythematosus. She has seizure disorder as well as gastroesophageal reflux disease and anxiety. PREM SCHILLING MD DR: ROBBY/cameron JOB#: [id number] / [id number]
[2018-08-12 16:07] LABS: CHLAMYDIA PROBE Negative (Negative)
[2018-08-12] MEDS ORDERED: ALPRAZolam 0.5 MG TABLET PO SCH (21:00)
== END 2018-08-12 13:20 | disposition short-term general hospital (02) | DRG 760 ==
LOC: ER 15:50 → 1 SOUTH 18:22
PROVIDERS: ADMIT Internal Medicine; ATTEND Internal Medicine
DX: D25.9 Leiomyoma of uterus, unspecified (principal); E87.2 Acidosis; G40.909 Epilepsy, unspecified, not intractable, without status epilepticus; K21.9 Gastro-esophageal reflux disease without esophagitis; F41.9 Anxiety disorder, unspecified; M32.9 Systemic lupus erythematosus, unspecified; I95.9 Hypotension, unspecified; E86.1 Hypovolemia; N73.9 Female pelvic inflammatory disease, unspecified; Z82.49 Family history of ischemic heart disease and other diseases of the circulatory system; Z83.3 Family history of diabetes mellitus; Z86.14 Personal history of Methicillin resistant Staphylococcus aureus infection; Z88.8 Allergy status to other drugs, medicaments and biological substances
CPT/HCPCS: 36415; 76830; 76856; 80053; 81001; 85025; 85651; 86140; 87491; 87591; 96361; 96365; 96375; J0696; J1170; J2270; J2405; J2930; J3010; Q0163; 99285-25; J7030

== ENCOUNTER → 2018-08-11 | Outpatient (CLI) | payer OTHER ==
[~2018-08-11] MED LIST changes: +IOHEXOL 240 MG/ML 50ML VIAL. ONE; +IOHEXOL 240 MG/ML 50ML VIAL. PO ONE; +IOHEXOL 300 MG/ML 75 ML VIAL. IV ONE
[2018-08-11 09:12] LABS: BASO % 1 % (0-3); EOS % 0 % (0-3); HEMATOCRIT 36.7 % (36.0-47.0); HEMOGLOBIN 11.7 g/dL (12.0-15.5); LYMPH # 0.2 x10^3/uL (1.0-4.8); LYMPH % 6 % (24-48); MEAN CORPUSCULAR HEMOGLOBIN 26 pg (25-35); MEAN CORPUSCULAR HGB CONC 32 g/dL (31-37); MEAN CORPUSCULAR VOLUME 82 fL (79-100); MONO % 1 % (0-9); NEUT # 3.3 x10^3uL (1.8-7.7); NEUT % 92 % (31-73); PLATELET COUNT 226 x10^3/uL (140-400); RED BLOOD COUNT 4.45 x10^6/uL (3.50-5.40); RED CELL DISTRIBUTION WIDTH 14.1 % (11.5-14.5); WHITE BLOOD COUNT 3.6 x10^3/uL (4.0-11.0)
[2018-08-11 09:19] LABS: ALBUMIN 3.6 g/dL (3.4-5.0); ALBUMIN/GLOBULIN RATIO 0.9 (1.0-1.7); CALCIUM 8.9 mg/dL (8.5-10.1); CREATININE 0.9 mg/dL (0.6-1.0); GFR 83.5; POTASSIUM 3.6 mmol/L (3.5-5.1); TOTAL BILIRUBIN 0.2 mg/dL (0.2-1.0); TOTAL PROTEIN 7.8 g/dL (6.4-8.2)
--- NOTE | 2018-08-11 10:41 | RAD ---
PQRS Compliance Statement: One or more of the following individualized dose reduction techniques were utilized for this examination: 1. Automated exposure control 2. Adjustment of the mA and/or kV according to patient size 3. Use of iterative reconstruction technique CT abdomen/pelvis with contrast 08/11/2018 12:00 AM INDICATION: Severe abdominal pain, fever. COMPARISON: CT abdomen/pelvis February 27, 2018 TECHNIQUE: Multiple axial CT images of the abdomen and pelvis were obtained after the intravenous administration of 75 mL Omnipaque 300. Coronal and sagittal reformats are provided. FINDINGS: Bibasilar interstitial changes appears similar. Heart size is within normal limits. Liver, spleen, bilateral adrenal glands, pancreas and gallbladder are normal in appearance. The abdominal aorta is normal in course and caliber. There are no pathologically enlarged lymph nodes in the abdomen and pelvis. There is no abdominal free fluid. There is no free intraperitoneal air. Trace free fluid is identified within the pelvis, likely physiologic. Oral contrast was administered. Opacified bowel loops demonstrate normal mucosal fold pattern. Small and large bowel are normal in caliber. There is no evidence for bowel obstruction. There are no pericolonic inflammatory changes. A normal, nondilated appendix is visualized without adjacent inflammatory changes. 5 mm hypodense lesion in the posterior interpolar left kidney is too small to characterize, statistically favored represent simple cyst. The kidneys enhance symmetrically. There is no suspicious renal mass. There is no hydronephrosis. There are no suspected calculi within the kidneys, ureters or urinary bladder. Uterus is normal in appearance. Follicular changes are identified in the adnexa bilaterally. Urinary bladder is within normal limits given degree of distention. No suspicious osseous abnormality is identified. IMPRESSION: 1. Bibasilar interstitial changes appears similar to the prior examination from February 27, 2018. Consideration may be given for subsegmental atelectasis versus chronic interstitial changes. Short-term follow-up CT chest may be of benefit to ensure resolution. Correlate with any underlying drug toxicity or hypersensitivity pneumonitis. 2. 5 mm hypoattenuating lesion in the posterior interpolar left kidney is too small characterize, however statistically favor to represent a simple cyst. Electronically signed by: Ruthie Cantu MD (08/11/2018 10:38 AM) [facility]
== END | disposition home or self-care (01) ==
LOC: CT 08:45
PROVIDERS: ATTEND Physician Assistant Medical
DX: J84.89 Other specified interstitial pulmonary diseases (principal); N28.89 Other specified disorders of kidney and ureter
CPT/HCPCS: 36415; 74177; 80053; 85025; Q9966; Q9967

== ENCOUNTER → 2018-08-26 | Outpatient (CLI) | payer OTHER ==
[2018-08-12 11:12] VITALS: BP 88/56
[~2018-08-26] MED LIST changes: +BELI200A IM; +BUPR75TA6 PO; +NIFE30TA15 PO; +RANI150T2 PO; +TOPI100T8 PO
[2018-08-26 10:12] LABS: BASO % 1 % (0-3); EOS % 2 % (0-3); HEMATOCRIT 35.8 % (36.0-47.0); HEMOGLOBIN 11.3 g/dL (12.0-15.5); LYMPH # 0.7 x10^3/uL (1.0-4.8); LYMPH % 23 % (24-48); MEAN CORPUSCULAR HEMOGLOBIN 26 pg (25-35); MEAN CORPUSCULAR HGB CONC 32 g/dL (31-37); MEAN CORPUSCULAR VOLUME 83 fL (79-100); MONO # 0.4 x10^3/uL (0.0-1.1); MONO % 14 % (0-9); NEUT # 1.8 x10^3uL (1.8-7.7); NEUT % 60 % (31-73); PLATELET COUNT 271 x10^3/uL (140-400); RED CELL DISTRIBUTION WIDTH 14.2 % (11.5-14.5); WHITE BLOOD COUNT 2.9 x10^3/uL (4.0-11.0)
[2018-08-26 10:29] LABS: CALCIUM 9.1 mg/dL (8.5-10.1); GFR 73.9; MAGNESIUM 1.8 mg/dL (1.8-2.4); POTASSIUM 4.5 mmol/L (3.5-5.1)
== END | disposition home or self-care (01) ==
LOC: LAB 08:38
PROVIDERS: ATTEND Internal Medicine
DX: E61.2 Magnesium deficiency (principal); E87.6 Hypokalemia; I42.9 Cardiomyopathy, unspecified
CPT/HCPCS: 36415; 80048; 83735; 85025

== ENCOUNTER → 2018-09-04 | Outpatient (CLI) | payer OTHER ==
[2018-08-12 11:12] VITALS: BP 88/56
[2018-09-04 10:27] LABS: BASO % 1 % (0-3); EOS % 2 % (0-3); HEMATOCRIT 34.8 % (36.0-47.0); HEMOGLOBIN 11.3 g/dL (12.0-15.5); LYMPH # 0.7 x10^3/uL (1.0-4.8); LYMPH % 24 % (24-48); MEAN CORPUSCULAR HEMOGLOBIN 27 pg (25-35); MEAN CORPUSCULAR HGB CONC 33 g/dL (31-37); MEAN CORPUSCULAR VOLUME 83 fL (79-100); MONO # 0.3 x10^3/uL (0.0-1.1); MONO % 12 % (0-9); NEUT # 1.9 x10^3uL (1.8-7.7); NEUT % 62 % (31-73); PLATELET COUNT 258 x10^3/uL (140-400); RED CELL DISTRIBUTION WIDTH 13.9 % (11.5-14.5)
[2018-09-04 10:56] LABS: BACTERIA,URINE 0 /HPF (0-FEW); BILIRUBIN,URINE NEG (NEG); CLARITY,URINE CLEAR; COLOR,URINE YELLOW; GLUCOSE,URINE NEG (NEG); NITRITE,URINE NEG (NEG); RBC,URINE 0 /HPF (0-2); SQUAMOUS EPITHELIAL CELL,UR OCC /LPF; UROBILINOGEN,URINE 0.2 mg/dL (0.2 mg/dL); WBC,URINE 0 /HPF (0-4)
[2018-09-04 10:57] LABS: ALBUMIN 3.8 g/dL (3.4-5.0); ALBUMIN/GLOBULIN RATIO 0.8 (1.0-1.7); C REACTIVE PROTEIN 2.9 mg/L (0-3.3); CALCIUM 9.4 mg/dL (8.5-10.1); GFR 73.9; POTASSIUM 4.1 mmol/L (3.5-5.1); TOTAL BILIRUBIN 0.3 mg/dL (0.2-1.0); TOTAL PROTEIN 8.7 g/dL (6.4-8.2)
[2018-09-04 11:41] LABS: SEDIMENTATION RATE 58 (0-25)
[2018-09-04 19:08] LABS: C3 COMPLEMENT 104 mg/dL (82-167); C4 COMPLEMENT 21 mg/dL (14-44)
[2018-09-04 21:06] LABS: MICRO CREAT RATIO 4.9 mg/g creat (0.0-30.0); MICROALB RD UR 5.2 ug/mL (Not Estab.)
== END | disposition home or self-care (01) ==
LOC: LAB 09:37
PROVIDERS: ATTEND Internal Medicine Rheumatology
DX: I42.7 Cardiomyopathy due to drug and external agent (principal); M32.9 Systemic lupus erythematosus, unspecified; R53.82 Chronic fatigue, unspecified
CPT/HCPCS: 36415; 80053; 81001; 82043; 82550; 82570; 84443; 85025; 85651; 86140; 86160

== ENCOUNTER → 2018-11-03 | Outpatient (CLI) | payer OTHER ==
--- NOTE | 2018-11-04 08:14 | CARD ---
MR#: [id number] Date of Study: 11/03/2018 Ordering Physician: ALEXANDER ELMORE, Referring Physician: ALEXANDER ELMORE, Tech: Sue Renteria APPROVED REPORT EXAM: Two-dimensional and M-mode echocardiogram with Doppler and color Doppler. Other Information Quality : GoodHR: 53bpm INDICATION Cardiomyopathy 2D DIMENSIONS RVDd2.4 (2.9-3.5cm)Left Atrium(2D)3.2 (1.6-4.0cm) IVSd1.0 (0.7-1.1cm)Aortic Root(2D)2.9 (2.0-3.7cm) LVDd4.2 (3.9-5.9cm)LVOT Diameter1.9 (1.8-2.4cm) PWd1.1 (0.7-1.1cm)LVDs3.1 (2.5-4.0cm) FS (%) 27.3 %SV43.1 ml LVEF(%)53.5 (>50%) Aortic Valve AoV Peak Fito.118.7cm/sAoV VTI28.4cm AO Peak GR.5.6mmHgLVOT Peak Fito.89.8cm/s LVOT VTI 20.59cmAO Mean GR.3mmHg TYRON (VMAX)2.86eh6JMQ (VTI)2.14cm2 Mitral Valve MV E Wyilyagi48.0cm/sMV DECEL QCVO340my MV A Crcydxgy37.3cm/sE/A Ratio2.2 Pulmonary Valve PV Peak Kktmcnfu71.7cm/sPV Peak Grad.3mmHg Pulmonary Vein S1 Rqousajq40.5cm/sD2 Bqsmcnyg87.4cm/s LEFT VENTRICLE The left ventricle is normal size. There is mild concentric left ventricular hypertrophy. The left ve ntricular systolic function is mildly impaired. The Ejection Fraction is 40-45%. There is slight glob al hypokinesis of the left ventricle. The left ventricular diastolic function and filling is normal f or age. RIGHT VENTRICLE The right ventricle is normal size. There is normal right ventricular wall thickness. The right ventr icular systolic function is normal. ATRIA The left atrium size is normal. The right atrium size is normal. The interatrial septum is intact wit h no evidence for an atrial septal defect or patent foramen ovale as noted on 2-D or Doppler imaging. AORTIC VALVE The aortic valve is normal in structure and function. Doppler and Color Flow revealed no significant aortic regurgitation. There is no significant aortic valvular stenosis. MITRAL VALVE The mitral valve is normal in structure and function. There is no evidence of mitral valve prolapse. There is no mitral valve stenosis. Doppler and Color-flow revealed trace mitral regurgitation. TRICUSPID VALVE The tricuspid valve is normal in structure and function. Doppler and Color Flow revealed no tricuspid valve regurgitation noted. There is no tricuspid valve stenosis. PULMONIC VALVE The pulmonary valve is normal in structure and function. Doppler and Color Flow revealed trace pulmon ic valvular regurgitation. GREAT VESSELS The aortic root is normal in size. The IVC is normal in size and collapses >50% with inspiration. PERICARDIAL EFFUSION There is no evidence of significant pericardial effusion. Critical Notification Critical Value: No <Conclusion> The left ventricular systolic function is mildly impaired. The Ejection Fraction is 40-45%. Trace mitral regurgitation. There is no evidence of significant pericardial effusion. Signed by : Alexander Elmore, Electronically Approved : 11/04/2018 08:13:49
== END | disposition home or self-care (01) ==
LOC: ECHO 14:46
PROVIDERS: ATTEND Internal Medicine Cardiovascular Disease
DX: I51.7 Cardiomegaly (principal); I42.9 Cardiomyopathy, unspecified
CPT/HCPCS: 93306

== ENCOUNTER → 2019-01-25 | Outpatient (CLI) | payer OTHER ==
--- NOTE | 2019-01-25 14:59 | RAD ---
Transabdominal and endovaginal pelvic ultrasound without comparison for acute pelvic pain. Technique and findings: Real-time grayscale and color Doppler evaluation of the pelvic organs is performed first from the transabdominal and then from and endovaginal approach. The urinary bladder is decompressed on the transabdominal images rendering the acoustic window in adequate for diagnosis. The uterus measures 8.6 x 5.7 x 5.1 cm. The endometrium is thin throughout the uterine body, but is thickened at the uterine fundus measuring 1.1 cm. This may be physiologic, but could also reflect an endometrial polyp or pedunculated submucosal fibroid. This was not present on the prior ultrasound. There are multiple myometrial fibroids which are grossly unchanged in size and distribution from the prior examination. The largest is posterior fundal and measures 1.7 x 1.2 x 1.4 cm. There is at least one small nabothian cysts with no other cervical abnormalities. Bilateral ovaries demonstrate normal follicular character and blood flow. Right ovary measures 2.6 x 1.1 x 1.2 cm in the left measures 3.6 x 1.7 x 1.6 cm. There is no free fluid. IMPRESSION: 1. Stable appearance of multiple small uterine fibroids, the largest of which is 1.7 cm. 2. Thickened endometrium within the uterine fundus, perhaps physiologic. Other considerations include endometrial polyp or new small pedunculated submucosal fibroid. Consider follow-up ultrasound to confirm resolution. 3. Small nabothian cyst. Electronically signed by: Aquilino Jaime MD (01/25/2019 2:56 PM) [facility]
== END | disposition home or self-care (01) ==
LOC: US 10:48
PROVIDERS: ATTEND Obstetrics & Gynecology
DX: D25.9 Leiomyoma of uterus, unspecified (principal); N88.8 Other specified noninflammatory disorders of cervix uteri; R93.89 Abnormal findings on diagnostic imaging of other specified body structures
CPT/HCPCS: 76830; 76856

== ENCOUNTER → 2019-03-31 | Outpatient (CLI) | payer OTHER ==
--- NOTE | 2019-04-01 17:46 | RAD ---
BILATERAL SCREENING MAMMOGRAM, 3-D History: Routine screening. Comparison: 03/06/2017 and 03/24/2018. Technique: MLO and CC digital tomosynthesis (3D) images obtained. Radiologist reviewed these images on dedicated workstation. Findings: Breast Tissue Density B : There are scattered areas of fibroglandular density. There are no dominant masses, suspicious microcalcifications, or architectural distortion. IMPRESSION: No mammographic evidence of malignancy. Recommend routine screening. BI-RADS category 1: Negative. The images were reviewed with computer-aided detection. Patient information is entered into reminder system with a target due date for the next screening mammogram. Mammography is the most sensitive method for finding small breast cancers, but it does not detect them all and is not a substitute for careful clinical examination. A negative mammogram does not negate a clinically suspicious finding and should not result in delay in biopsying a clinically suspicious abnormality. "Our facility is accredited by the [employer] Mammography [employer]." Electronically signed by: Aries Morrison MD (04/01/2019 5:43 PM) [facility]
== END | disposition home or self-care (01) ==
LOC: MAMMO 15:21
PROVIDERS: ATTEND Physician Assistant Medical
DX: Z12.31 Encounter for screening mammogram for malignant neoplasm of breast (principal)
CPT/HCPCS: 77063; 77067

== ENCOUNTER → 2019-03-31 | Outpatient (CLI) | payer OTHER ==
[2019-03-31 11:16] LABS: BASO % 1 % (0-3); EOS # 0.1 x10^3/uL (0.0-0.7); EOS % 2 % (0-3); HEMATOCRIT 35.6 % (36.0-47.0); HEMOGLOBIN 11.4 g/dL (12.0-15.5); LYMPH # 0.7 x10^3/uL (1.0-4.8); LYMPH % 29 % (24-48); MEAN CORPUSCULAR HEMOGLOBIN 26 pg (25-35); MEAN CORPUSCULAR HGB CONC 32 g/dL (31-37); MEAN CORPUSCULAR VOLUME 81 fL (79-100); MONO # 0.4 x10^3/uL (0.0-1.1); MONO % 18 % (0-9); NEUT # 1.3 x10^3uL (1.8-7.7); NEUT % 51 % (31-73); PLATELET COUNT 209 x10^3/uL (140-400); RED BLOOD COUNT 4.41 x10^6/uL (3.50-5.40); RED CELL DISTRIBUTION WIDTH 14.6 % (11.5-14.5); WHITE BLOOD COUNT 2.5 x10^3/uL (4.0-11.0)
[2019-03-31 11:33] LABS: ALBUMIN 3.8 g/dL (3.4-5.0); ALBUMIN/GLOBULIN RATIO 0.8 (1.0-1.7); C REACTIVE PROTEIN 4.4 mg/L (0-3.3); CALCIUM 8.5 mg/dL (8.5-10.1); GFR 73.6; POTASSIUM 4.2 mmol/L (3.5-5.1); TOTAL BILIRUBIN 0.3 mg/dL (0.2-1.0); TOTAL PROTEIN 8.6 g/dL (6.4-8.2)
[2019-03-31 12:25] LABS: SEDIMENTATION RATE 84 (0-25)
== END | disposition home or self-care (01) ==
LOC: LAB 09:02
PROVIDERS: ATTEND Nurse Practitioner Family
DX: M32.9 Systemic lupus erythematosus, unspecified (principal)
CPT/HCPCS: 36415; 80053; 85025; 85651; 86140

== ENCOUNTER → 2019-07-12 | Outpatient (CLI) | payer OTHER ==
[2019-07-12 14:45] LABS: FREE T4 1.02 ng/dL (0.76-1.46); THYROID STIM HORMONE (TSH) 2.706 uIU/mL (0.358-3.740)
[2019-07-12 20:07] LABS: ESTRADIOL LEVEL 114.6 pg/mL (.); FSH 4.1 mIU/mL (.)
== END ==
LOC: LAB 08:28
PROVIDERS: ATTEND Obstetrics & Gynecology
DX: Z01.419 Encounter for gynecological examination (general) (routine) without abnormal findings (principal)
CPT/HCPCS: 36415; 80061; 82670; 83001; 84439; 84443

== ENCOUNTER → 2019-07-12 | Outpatient (CLI) | payer OTHER ==
[2019-07-12 09:28] LABS: BASO % 1 % (0-3); EOS % 0 % (0-3); HEMATOCRIT 35.6 % (36.0-47.0); HEMOGLOBIN 11.5 g/dL (12.0-15.5); LYMPH # 0.7 x10^3/uL (1.0-4.8); LYMPH % 25 % (24-48); MEAN CORPUSCULAR HEMOGLOBIN 27 pg (25-35); MEAN CORPUSCULAR HGB CONC 32 g/dL (31-37); MEAN CORPUSCULAR VOLUME 82 fL (79-100); MONO # 0.3 x10^3/uL (0.0-1.1); MONO % 11 % (0-9); NEUT # 1.8 x10^3uL (1.8-7.7); NEUT % 63 % (31-73); PLATELET COUNT 197 x10^3/uL (140-400); RED BLOOD COUNT 4.33 x10^6/uL (3.50-5.40); RED CELL DISTRIBUTION WIDTH 13.8 % (11.5-14.5); WHITE BLOOD COUNT 2.8 x10^3/uL (4.0-11.0)
[2019-07-12 09:35] LABS: ALBUMIN 3.4 g/dL (3.4-5.0); ALBUMIN/GLOBULIN RATIO 0.7 (1.0-1.7); C REACTIVE PROTEIN 8.6 mg/L (0-3.3); CALCIUM 8.8 mg/dL (8.5-10.1); GFR 73.6; POTASSIUM 4.1 mmol/L (3.5-5.1); TOTAL BILIRUBIN 0.3 mg/dL (0.2-1.0); TOTAL PROTEIN 8.1 g/dL (6.4-8.2)
== END ==
LOC: LAB 08:24
PROVIDERS: ATTEND Internal Medicine Rheumatology
DX: M32.9 Systemic lupus erythematosus, unspecified (principal)
CPT/HCPCS: 36415; 80053; 85025; 86140

== ENCOUNTER → 2019-08-26 | Outpatient (CLI) | payer OTHER | END | disposition home or self-care (01) | LOC: LAB 07:29 | PROVIDERS: ATTEND Internal Medicine Cardiovascular Disease | DX: Z20.828 Contact with and (suspected) exposure to other viral communicable diseases (principal) | CPT/HCPCS: C9803; U0003; 36415 ==

== ENCOUNTER → 2019-09-01 | Outpatient (CLI) | payer OTHER | END | disposition home or self-care (01) | LOC: LAB 10:30 | PROVIDERS: ATTEND Internal Medicine Cardiovascular Disease | DX: Z20.828 Contact with and (suspected) exposure to other viral communicable diseases (principal) | CPT/HCPCS: C9803; U0003; 36415 ==

== ENCOUNTER → 2019-09-08 | Outpatient (CLI) | payer OTHER ==
[~2019-09-08] MED LIST changes: +PRED20TA PO
== END | disposition home or self-care (01) ==
LOC: LAB 14:39
PROVIDERS: ATTEND Internal Medicine Cardiovascular Disease
DX: Z20.828 Contact with and (suspected) exposure to other viral communicable diseases (principal)
CPT/HCPCS: C9803; U0003; 36415

== ENCOUNTER → 2019-09-15 | Outpatient (CLI) | payer OTHER ==
--- NOTE | 2019-09-17 10:44 | NUR ---
IP: notified of COVID test result.
== END | disposition home or self-care (01) ==
LOC: LAB 06:46
PROVIDERS: ATTEND Internal Medicine Cardiovascular Disease
DX: O98.512 Other viral diseases complicating pregnancy, second trimester (principal); Z20.828 Contact with and (suspected) exposure to other viral communicable diseases; Z3A.17 17 weeks gestation of pregnancy
CPT/HCPCS: C9803; U0003; 36415

== ENCOUNTER 2019-09-30 22:45 | Emergency (ER) | payer OTHER ==
[~2019-09-30] VITALS: Ht 167.6 cm; Wt 77.3 kg
[~2019-09-30 22:45] MED LIST changes: -PRED20TA PO
[2019-09-30 23:10] VITALS: BP 88/56
[2019-09-30] MEDS ORDERED: PRED20TA PO (23:24)
--- NOTE | 2019-09-30 23:25 | PHYS DOC ---
Past History Past Medical History: Anxiety, GERD, Seizure, Other Additional Past Medical Histor: lupus Past Surgical History: Other Additional Past Surgical Histo: ablation Alcohol Use: Rarely Drug Use: None General Adult EDM: Chief Complaint: OTHER COMPLAINTS HPI: HPI: Patient is a [age] year old [sex] who presents with [] Review of Systems: Review of Systems: Constitutional: Denies fever or chills Eyes: Denies change in visual acuity HENT: Denies nasal congestion or sore throat Respiratory: Denies cough or shortness of breath Cardiovascular: Denies chest pain or edema GI: Denies abdominal pain, nausea, vomiting, bloody stools or diarrhea : Denies dysuria Musculoskeletal: Denies back pain or joint pain Integument: Denies rash Neurologic: Denies headache, focal weakness or sensory changes Endocrine: Denies polyuria or polydipsia Lymphatic: Denies swollen glands Psychiatric: Denies depression or anxiety Heart Score: Risk Factors: Risk Factors: DM, Current or recent (<one month) smoker, HTN, HLP, family history of CAD, obesity. Risk Scores: Score 0 - 3: 2.5% MACE over next 6 weeks - Discharge Home Score 4 - 6: 20.3% MACE over next 6 weeks - Admit for Clinical Observation Score 7 - 10: 72.7% MACE over next 6 weeks - Early Invasive Strategies Allergies: Allergies: Allergies Coded Allergies Type Severity Reaction Last Updated Verified ceftriaxone Allergy Severe LIP SWELLING/NUMBNESS 08/12/18 Yes nitrofurantoin Allergy Intermediate Itching 02/22/18 Yes Physical Exam: PE: Constitutional: Well developed, well nourished, no acute distress, non-toxic appearance. [] HENT: Normocephalic, atraumatic, bilateral external ears normal, oropharynx moist, no oral exudates, nose normal. [] Eyes: PERRLA, EOMI, conjunctiva normal, no discharge. [] Neck: Normal range of motion, no tenderness, supple, no stridor. [] Cardiovascular:Heart rate regular rhythm, no murmur [] Lungs & Thorax: Bilateral breath sounds clear to auscultation [] Abdomen: Bowel sounds normal, soft, no tenderness, no masses, no pulsatile masses. [] Skin: Warm, dry, no erythema, no rash. [] Back: No tenderness, no CVA tenderness. [] Extremities: No tenderness, no cyanosis, no clubbing, ROM intact, no edema. [] Neurologic: Alert and oriented X 3, normal motor function, normal sensory function, no focal deficits noted. [] Psychologic: Affect normal, judgement normal, mood normal. [] Current Patient Data: Vital Signs: Vital Signs Date Time Temp Pulse Resp B/P (MAP) Pulse Ox O2 Delivery O2 Flow Rate FiO2 09/30/19 23:10 98.2 71 18 88/56 (67) Room Air EKG: EKG: [] Radiology/Procedures: Radiology/Procedures: [] Course & Med Decision Making: Course & Med Decision Making Pertinent Labs and Imaging studies reviewed. (See chart for details) [] Dragon Disclaimer: Dragon Disclaimer: This electronic medical record was generated, in whole or in part, using a voice recognition dictation system. Departure Departure: Impression: Primary Impression: Exacerbation of systemic lupus Disposition: HOME/RESIDENCE PRIOR TO ADM Condition: STABLE Referrals: ASHLEY JONES (PCP) Patient Instructions: Lupus, Pleurisy, [id number] Additional Instructions: Please continue over the counter Tylenol and/or Ibuprofen for pain or discomfort. Return for any continuation or worsening of symptoms. Scripts Prednisone (PREDNISONE) 20 Mg Tablet 2 TAB PO DAILY for Pleurisy, #8 TAB Start this medication tomorrow, Friday10/01/19 Prov: VERNON BELTRÁN DO 09/30/19 Justification of Admission: Justification of Admission: Justification of Admission Dx: N/A VERNON BELTRÁN DO Sep 30, 2019 23:25
[2019-09-30] MEDS ORDERED: HYDROcodone/APAP 5/325MG 1 TAB TABLET PO ONE (23:30)
[2019-09-30] MEDS ORDERED: DEXAMETHASONE 4 MG TABLET PO ONE (23:30)
[2019-09-30] MEDS ORDERED: KETOROLAC 30 MG/ML VIAL. IM ONE (23:30)
== END 2019-09-30 23:40 | disposition home or self-care (01) ==
LOC: ER 22:45
DX: M32.9 Systemic lupus erythematosus, unspecified (principal); F41.9 Anxiety disorder, unspecified; K21.9 Gastro-esophageal reflux disease without esophagitis; Z88.8 Allergy status to other drugs, medicaments and biological substances
CPT/HCPCS: 96372; 99283; J1885; J8540

== ENCOUNTER 2019-10-03 14:33 | Emergency (ER) | payer OTHER ==
[~2019-10-03] VITALS: Ht 167.6 cm; Wt 77.3 kg
[~2019-10-03 14:33] MED LIST changes: +PRED20TA PO
[2019-10-03 14:50] VITALS: BP 145/78
--- NOTE | 2019-10-03 15:04 | PHYS DOC ---
Past History Past Medical History: Anxiety, GERD, Seizure, Other Additional Past Medical Histor: lupus Past Surgical History: Other Additional Past Surgical Histo: ablation Alcohol Use: Rarely Drug Use: None General Adult EDM: Chief Complaint: PLEURISY HPI: HPI: 44-year-old female presents emergency room with continued right chest wall pain with deep breathing. Patient was seen in this facility by my colleague a few days ago. She was diagnosed as either lupus flareup or pleurisy. She is on prednisone. Earlier today, she had 10 out of 10 cramping pain right side of her chest. She denied shortness of breath or diaphoresis. It has improved to a 3 out of 10 at this time. She is about to have a procedure done does not want to run the risk of having pneumonia or some other infection that would derail her procedure. An x-ray was not done at the previous visit according to the patient. She denies fever or chills. Review of Systems: Review of Systems: Constitutional: Denies fever or chills Eyes: Denies change in visual acuity HENT: Denies nasal congestion or sore throat Respiratory: Right-sided chest wall pain without shortness of breath Cardiovascular: Denies chest pain or edema GI: Denies abdominal pain, nausea, vomiting, bloody stools or diarrhea : Denies dysuria Musculoskeletal: Denies back pain or joint pain Integument: Denies rash Neurologic: Denies headache, focal weakness or sensory changes Endocrine: Denies polyuria or polydipsia Lymphatic: Denies swollen glands Psychiatric: Denies depression or anxiety Heart Score: Risk Factors: Risk Factors: DM, Current or recent (<one month) smoker, HTN, HLP, family history of CAD, obesity. Risk Scores: Score 0 - 3: 2.5% MACE over next 6 weeks - Discharge Home Score 4 - 6: 20.3% MACE over next 6 weeks - Admit for Clinical Observation Score 7 - 10: 72.7% MACE over next 6 weeks - Early Invasive Strategies Allergies: Allergies: Allergies Coded Allergies Type Severity Reaction Last Updated Verified ceftriaxone Allergy Severe LIP SWELLING/NUMBNESS 08/12/18 Yes nitrofurantoin Allergy Intermediate Itching 02/22/18 Yes Physical Exam: PE: Constitutional: Well developed, well nourished, no acute distress, non-toxic appearance. [] HENT: Normocephalic, atraumatic, bilateral external ears normal, oropharynx moist, no oral exudates, nose normal. [] Eyes: PERRLA, EOMI, conjunctiva normal, no discharge. [] Neck: Normal range of motion, no tenderness, supple, no stridor. [] Cardiovascular: Heart rate regular rhythm, no murmur [] Lungs & Thorax: Bilateral breath sounds clear to auscultation [] Abdomen: Bowel sounds normal, soft, no tenderness, no masses, no pulsatile masses. [] Skin: Warm, dry, no erythema, no rash. [] Back: No tenderness, no CVA tenderness. [] Extremities: No tenderness, no cyanosis, no clubbing, ROM intact, no edema. [] Neurologic: Alert and oriented X 3, normal motor function, normal sensory function, no focal deficits noted. [] Psychologic: Affect normal, judgement normal, mood normal. [] Current Patient Data: Vital Signs: Vital Signs Date Time Temp Pulse Resp B/P (MAP) Pulse Ox O2 Delivery O2 Flow Rate FiO2 10/03/19 14:50 98.4 59 20 145/78 (100) 99 Room Air EKG: EKG: [] Radiology/Procedures: Radiology/Procedures: [] Course & Med Decision Making: Course & Med Decision Making Pertinent Labs and Imaging studies reviewed. (See chart for details) The patient's chest x-ray is negative for acute findings. I do not believe I would change treatment for the patient. She should continue her steroids as previously prescribed. She is stable for discharge at this time. [] Dragon Disclaimer: Dragon Disclaimer: This electronic medical record was generated, in whole or in part, using a voice recognition dictation system. Departure Departure: Impression: Primary Impression: Pleurisy Disposition: HOME/RESIDENCE PRIOR TO ADM Condition: STABLE Referrals: ASHLEY JNOES (PCP) Patient Instructions: Pleurisy, [id number] Justification of Admission: Justification of Admission: Justification of Admission Dx: N/A YOLANDA ALVARES DO Oct 03, 2019 15:04
--- NOTE | 2019-10-03 15:49 | RAD ---
CHEST PA LATERAL Clinical indications: Right-sided chest wall pain with breathing COMPARISON: June 19, 2017. Findings: No acute lung infiltrate or pleural effusion or pulmonary edema or lung mass or pneumothorax is seen. The heart size, pulmonary vasculature, mediastinum and both rufina are unremarkable. The osseous structures appear intact. Impression: No acute radiographic abnormality is seen. Electronically signed by: Roberto Meek MD (10/03/2019 3:46 PM) [id number]
== END 2019-10-03 15:51 | disposition home or self-care (01) ==
LOC: ER 14:33
DX: R09.1 Pleurisy (principal); F41.9 Anxiety disorder, unspecified; K21.9 Gastro-esophageal reflux disease without esophagitis; Z88.8 Allergy status to other drugs, medicaments and biological substances
CPT/HCPCS: 71046; 99283

== ENCOUNTER → 2019-10-13 | Outpatient (CLI) | payer OTHER ==
[2019-10-03 14:50] VITALS: BP 145/78
[2019-10-13 10:27] LABS: BASO % 0 % (0-3); EOS % 0 % (0-3); HEMATOCRIT 29.9 % (36.0-47.0); HEMOGLOBIN 9.6 g/dL (12.0-15.5); LYMPH # 0.7 x10^3/uL (1.0-4.8); LYMPH % 14 % (24-48); MEAN CORPUSCULAR HEMOGLOBIN 27 pg (25-35); MEAN CORPUSCULAR HGB CONC 32 g/dL (31-37); MEAN CORPUSCULAR VOLUME 84 fL (79-100); MONO # 0.5 x10^3/uL (0.0-1.1); MONO % 9 % (0-9); NEUT % 77 % (31-73); PLATELET COUNT 150 x10^3/uL (140-400); RED BLOOD COUNT 3.58 x10^6/uL (3.50-5.40); RED CELL DISTRIBUTION WIDTH 14.1 % (11.5-14.5); WHITE BLOOD COUNT 5.3 x10^3/uL (4.0-11.0)
[2019-10-13 10:41] LABS: ALBUMIN 2.8 g/dL (3.4-5.0); ALBUMIN/GLOBULIN RATIO 0.6 (1.0-1.7); C REACTIVE PROTEIN 89.5 mg/L (0-3.3); CALCIUM 8.3 mg/dL (8.5-10.1); CREATININE 1.3 mg/dL (0.6-1.0); GFR 54.4; POTASSIUM 3.8 mmol/L (3.5-5.1); TOTAL BILIRUBIN 0.2 mg/dL (0.2-1.0); TOTAL PROTEIN 7.6 g/dL (6.4-8.2)
[2019-10-13 19:07] LABS: C3 COMPLEMENT 91 mg/dL (82-167); C4 COMPLEMENT 12 mg/dL (14-44)
[2019-10-14 14:08] LABS: ANTI-DS DNA 27 IU/mL (0-9)
== END | disposition home or self-care (01) ==
LOC: LAB 09:35
PROVIDERS: ATTEND Internal Medicine Rheumatology
DX: M32.9 Systemic lupus erythematosus, unspecified (principal)
CPT/HCPCS: 36415; 80053; 82550; 85025; 86140; 86160; 86255

== ENCOUNTER → 2020-01-10 | Outpatient (CLI) | payer OTHER | LOC: LAB 10:30 | PROVIDERS: ATTEND Internal Medicine Cardiovascular Disease | DX: Z20.828 Contact with and (suspected) exposure to other viral communicable diseases (principal) | CPT/HCPCS: U0003 ==

== ENCOUNTER → 2020-01-17 | Outpatient (CLI) | payer OTHER | LOC: LAB 13:54 | PROVIDERS: ATTEND Internal Medicine Cardiovascular Disease | DX: Z20.828 Contact with and (suspected) exposure to other viral communicable diseases (principal) | CPT/HCPCS: U0003 ==

== ENCOUNTER → 2020-02-17 | Outpatient (CLI) | payer OTHER ==
[2020-02-17 07:55] LABS: BASO % 1 % (0-3); EOS % 0 % (0-3); HEMATOCRIT 35.7 % (36.0-47.0); HEMOGLOBIN 11.5 g/dL (12.0-15.5); LYMPH # 0.9 x10^3/uL (1.0-4.8); LYMPH % 30 % (24-48); MEAN CORPUSCULAR HEMOGLOBIN 26 pg (25-35); MEAN CORPUSCULAR HGB CONC 32 g/dL (31-37); MEAN CORPUSCULAR VOLUME 81 fL (79-100); MONO # 0.5 x10^3/uL (0.0-1.1); MONO % 14 % (0-9); NEUT # 1.7 x10^3uL (1.8-7.7); NEUT % 55 % (31-73); PLATELET COUNT 240 x10^3/uL (140-400); RED BLOOD COUNT 4.41 x10^6/uL (3.50-5.40); RED CELL DISTRIBUTION WIDTH 14.3 % (11.5-14.5); WHITE BLOOD COUNT 3.1 x10^3/uL (4.0-11.0)
[2020-02-17 08:58] LABS: ALBUMIN 3.5 g/dL (3.4-5.0); ALBUMIN/GLOBULIN RATIO 0.8 (1.0-1.7); C REACTIVE PROTEIN 2.7 mg/L (0-3.3); CALCIUM 8.6 mg/dL (8.5-10.1); GFR 73.6; POTASSIUM 3.9 mmol/L (3.5-5.1); TOTAL BILIRUBIN 0.2 mg/dL (0.2-1.0); TOTAL PROTEIN 7.8 g/dL (6.4-8.2)
== END ==
LOC: LAB 07:28
PROVIDERS: ATTEND Internal Medicine Rheumatology
DX: M32.9 Systemic lupus erythematosus, unspecified (principal)
CPT/HCPCS: 36415; 80053; 85025; 86140

== ENCOUNTER → 2020-02-22 | Outpatient (CLI) | payer OTHER ==
--- NOTE | 2020-02-22 15:43 | CARD ---
MR#: [id number] Date of Study: 02/22/2020 Ordering Physician: ALEXANDER CASTRO, Referring Physician: ALEXANDER CASTRO Tech: Evi Leong RDCS APPROVED REPORT EXAM: Two-dimensional and M-mode echocardiogram with Doppler and color Doppler. Other Information Quality : Good INDICATION Congestive Heart Failure 2D DIMENSIONS RVDd2.5 (2.9-3.5cm)Left Atrium(2D)3.2 (1.6-4.0cm) IVSd0.7 (0.7-1.1cm)Aortic Root(2D)2.8 (2.0-3.7cm) LVDd4.8 (3.9-5.9cm)LVOT Diameter2.0 (1.8-2.4cm) PWd0.7 (0.7-1.1cm)LVDs3.5 (2.5-4.0cm) FS (%) 27.2 %SV56.0 ml LVEF(%)52.9 (>50%) Aortic Valve AoV Peak Fito.123.9cm/sAoV VTI21.3cm AO Peak GR.6.1mmHgLVOT Peak Fito.97.6cm/s LVOT VTI 20.28cmAO Mean GR.3mmHg TYRON (VMAX)2.07ck0QLO (VTI)2.91cm2 Mitral Valve MV E Xopavnll26.3cm/sMV DECEL VAMI397yp MV A Voyttqdj83.9cm/sE/A Ratio1.2 Pulmonary Vein S1 Znwbybun09.7cm/sD2 Xddduynv47.1cm/s LEFT VENTRICLE The left ventricle is normal size. There is normal left ventricular wall thickness. Left ventricle sy stolic function is normal. The Ejection Fraction is 50-55%. There is normal LV segmental wall motion. The left ventricular diastolic function and filling is normal for age. RIGHT VENTRICLE The right ventricle is normal size. The right ventricular systolic function is normal. ATRIA The left atrium size is normal. The right atrium size is normal. The interatrial septum is intact wit h no evidence for an atrial septal defect or patent foramen ovale as noted on 2-D or Doppler imaging. AORTIC VALVE The aortic valve is normal in structure and function. Doppler and Color Flow revealed no significant aortic regurgitation. There is no significant aortic valvular stenosis. MITRAL VALVE The mitral valve is normal in structure and function. There is no evidence of mitral valve prolapse. There is no mitral valve stenosis. Doppler and Color Flow revealed no mitral valve regurgitation note d. TRICUSPID VALVE The tricuspid valve is normal in structure and function. Doppler and Color Flow revealed no tricuspid valve regurgitation noted. There is no tricuspid valve stenosis. PULMONIC VALVE The pulmonic valve is not well visualized. Doppler and Color Flow revealed no pulmonic valvular regur gitation. There is no pulmonic valvular stenosis. GREAT VESSELS The aortic root is normal in size. The ascending aorta is normal in size. The IVC is normal in size a nd collapses >50% with inspiration. PERICARDIAL EFFUSION There is no evidence of significant pericardial effusion. Critical Notification Critical Value: No <Conclusion> Left ventricle systolic function is normal. The Ejection Fraction is 50-55%. There is normal LV segmental wall motion. Signed by : Igor Elise, Electronically Approved : 02/22/2020 15:42:57
== END ==
LOC: ECHO 13:57
PROVIDERS: ATTEND Internal Medicine Cardiovascular Disease
DX: I50.22 Chronic systolic (congestive) heart failure (principal)
CPT/HCPCS: 93306

== ENCOUNTER → 2020-04-03 | Outpatient (CLI) | payer OTHER ==
[~2020-04-03] MED LIST changes: +SERT-267 PO; -SERT25TA4 PO
--- NOTE | 2020-04-06 08:17 | RAD ---
DATE: 04/03/2020 2:30 PM EXAM: MAMMO JANAE SCREENING BILATERAL HISTORY: Screening COMPARISON: 03/24/2018, 03/31/2019 Bilateral CC and MLO views of the breasts were performed. Bilateral breast tomosynthesis was performed in CC and MLO projections. This study was interpreted with the benefit of Computerized Aided Detection (CAD). FINDINGS: Breast Density: SCATTERED The breast parenchyma shows scattered fibroglandular densities. Breast parenchyma level B Negative right mammogram. Focal asymmetry in the lower-outer posterior left breast at the approximate 5:00 position 8 cm from the nipple needs additional imaging with a full-field lateral view, spot compression views in the CC and true lateral projection, possible targeted left breast ultrasound. IMPRESSION: Left breast focal asymmetry, findings for which additional imaging is advised. BI-RADS CATEGORY: 0 INCOMPLETE: NEEDS ADDITIONAL IMAGING EVALUATION AND/OR PRIOR MAMMOGRAMS FOR COMPARISON. RECOMMENDED FOLLOW-UP: ADD ADDITIONAL IMAGING The patient will be contacted to return for additional imaging and a supplemental report will follow. PQRS compliance statement: Patient information was entered into a reminder system with a target due date for the next mammogram. Mammography is a sensitive method for finding small breast cancers, but it does not detect them all and is not a substitute for careful clinical examination. A negative mammogram does not negate a clinically suspicious finding and should not result in delay in biopsying a clinically suspicious abnormality. "Our facility is accredited by the [employer] Mammography Program."
== END ==
LOC: MAMMO 14:23
PROVIDERS: ATTEND Physician Assistant Medical
DX: Z12.31 Encounter for screening mammogram for malignant neoplasm of breast (principal); N64.89 Other specified disorders of breast
CPT/HCPCS: 77063; 77067

== ENCOUNTER → 2020-04-19 | Outpatient (CLI) | payer OTHER ==
--- NOTE | 2020-04-19 14:35 | RAD ---
EXAM: Left breast diagnostic mammogram; left breast sonogram. HISTORY: 45-year-old female presents for evaluation of asymmetry within the left breast demonstrated on a mammogram performed 04/03/2020. TECHNIQUE: Full-field digital and spot compression views of the left breast are obtained.. Sonographi c imaging of the left breast at the site of asymmetry was also performed. COMPARISON: 04/03/2020. BREAST PARENCHYMAL DENSITY: Level B - Scattered fibroglandular densities. FINDINGS: There is no persistent finding of concern within the left breast with additional mammograph ic views. Specifically, no mass, suspicious calcification or architectural distortion is seen. Sonographic imaging of the left breast demonstrates no suspicious finding at the site of prior mammog raphic asymmetry. There are benign-appearing axillary lymph nodes. IMPRESSION: 1. No persistent suspicious mammographic or sonographic finding. 2. BI-RADS Category 2: Benign finding(s). RECOMMENDATION: Annual mammography is recommended. If your mammogram demonstrates that you have dense breast tissue, which could hide abnormalities, and if you have other risk factors for breast cancer that have been identified, you might benefit from s upplemental screening tests that may be suggested by your ordering physician. Dense breast tissue, i n and of itself, is a relatively common condition. This information is not provided to cause undue c oncern, but rather to raise your awareness and to promote discussion with your physician regarding th e presence of other risk factors, in addition to dense breast tissue. A report of your mammography re sults will be sent to you and your physician. You should contact your physician if you have any ques tions or concerns regarding this report. Mammography is a sensitive method for finding small breast cancers, but it does not detect them all a nd is not a substitute for careful clinical examination. A negative mammogram does not negate a clin ically suspicious finding and should not result in delay in biopsying a clinically suspicious abnorma lity. PQRS compliance statement - Patient information was entered into a reminder system with a target due date for the next mammogram. "Our facility is accredited by the [employer] Mammography [employer]." Electronically signed by: Yaa Urban MD (04/19/2020 2:32 PM) [id number]
== END ==
LOC: MAMMO 13:46
PROVIDERS: ATTEND Physician Assistant Medical
DX: R92.8 Other abnormal and inconclusive findings on diagnostic imaging of breast (principal)
CPT/HCPCS: 76641; 77065

== ENCOUNTER → 2020-04-25 | Outpatient (CLI) | payer OTHER ==
[2020-04-25 10:16] LABS: BASO % 1 % (0-3); EOS % 0 % (0-3); HEMATOCRIT 37.6 % (36.0-47.0); HEMOGLOBIN 12.2 g/dL (12.0-15.5); LYMPH # 1.1 x10^3/uL (1.0-4.8); LYMPH % 20 % (24-48); MEAN CORPUSCULAR HEMOGLOBIN 27 pg (25-35); MEAN CORPUSCULAR HGB CONC 32 g/dL (31-37); MEAN CORPUSCULAR VOLUME 82 fL (79-100); MONO # 0.7 x10^3/uL (0.0-1.1); MONO % 12 % (0-9); NEUT # 3.9 x10^3uL (1.8-7.7); NEUT % 68 % (31-73); PLATELET COUNT 261 x10^3/uL (140-400); RED CELL DISTRIBUTION WIDTH 13.8 % (11.5-14.5); WHITE BLOOD COUNT 5.7 x10^3/uL (4.0-11.0)
[2020-04-25 10:27] LABS: ALBUMIN 3.9 g/dL (3.4-5.0); ALBUMIN/GLOBULIN RATIO 0.9 (1.0-1.7); C REACTIVE PROTEIN 0.5 mg/L (0-3.3); CALCIUM 9.1 mg/dL (8.5-10.1); CREATININE 1.3 mg/dL (0.6-1.0); GFR 54.1; POTASSIUM 3.7 mmol/L (3.5-5.1); TOTAL BILIRUBIN 0.3 mg/dL (0.2-1.0); TOTAL PROTEIN 8.3 g/dL (6.4-8.2)
[2020-04-25 11:14] LABS: BACTERIA,URINE MOD /HPF (0-FEW); BILIRUBIN,URINE NEG (NEG); CLARITY,URINE HAZY; COLOR,URINE YELLOW; GLUCOSE,URINE NEG (NEG); NITRITE,URINE NEG (NEG); SQUAMOUS EPITHELIAL CELL,UR MANY /LPF; UROBILINOGEN,URINE 0.2 mg/dL (0.2 mg/dL)
[2020-04-25 12:07] LABS: SEDIMENTATION RATE 17 (0-25)
== END ==
LOC: LAB 09:24
PROVIDERS: ATTEND Internal Medicine Rheumatology
DX: R53.82 Chronic fatigue, unspecified (principal)
CPT/HCPCS: 36415; 80053; 81001; 85025; 85651; 86140; 86255; 87086

== ENCOUNTER → 2020-07-20 | Outpatient (CLI) | payer OTHER ==
[2020-07-20 08:31] LABS: BASO % 1 % (0-3); EOS % 0 % (0-3); HEMATOCRIT 36.4 % (36.0-47.0); LYMPH # 0.7 x10^3/uL (1.0-4.8); LYMPH % 27 % (24-48); MEAN CORPUSCULAR HEMOGLOBIN 27 pg (25-35); MEAN CORPUSCULAR HGB CONC 33 g/dL (31-37); MEAN CORPUSCULAR VOLUME 81 fL (79-100); MONO # 0.4 x10^3/uL (0.0-1.1); MONO % 15 % (0-9); NEUT # 1.5 x10^3uL (1.8-7.7); NEUT % 57 % (31-73); PLATELET COUNT 238 x10^3/uL (140-400); RED BLOOD COUNT 4.48 x10^6/uL (3.50-5.40); WHITE BLOOD COUNT 2.7 x10^3/uL (4.0-11.0)
[2020-07-20 08:39] LABS: ALBUMIN 3.8 g/dL (3.4-5.0); ALBUMIN/GLOBULIN RATIO 0.9 (1.0-1.7); C REACTIVE PROTEIN 4.4 mg/L (0-3.3); CALCIUM 8.7 mg/dL (8.5-10.1); CREATININE 1.2 mg/dL (0.6-1.0); GFR 59.3; TOTAL BILIRUBIN 0.4 mg/dL (0.2-1.0)
[2020-07-20 09:38] LABS: SEDIMENTATION RATE 27 (0-25)
== END ==
LOC: LAB 07:58
PROVIDERS: ATTEND Internal Medicine Rheumatology
DX: M32.9 Systemic lupus erythematosus, unspecified (principal)
CPT/HCPCS: 36415; 80053; 85025; 85651; 86140

== ENCOUNTER 2020-09-24 03:53 | Emergency (ER) | payer OTHER ==
[~2020-09-24] VITALS: Ht 167.6 cm; Wt 82.6 kg
--- NOTE | 2020-09-24 04:02 | PHYS DOC ---
Past History Past Medical History: Anxiety, Bronchitis, GERD, Seizure, Other Additional Past Medical Histor: lupus (EMELY CHANG MD) Past Surgical History: Other Additional Past Surgical Histo: ablation (EMELY CHANG MD) Alcohol Use: Rarely Drug Use: None (EMELY CHANG MD) General Adult HPI: HPI: ".. I woke up with this chest pain.. here in the center.. it seems worse with deep breaths.. I have Lupus..and had problems before with my heart..I seen Dr. Elmore..and had evaluation.. echo and other stuff..back in February..at that time things check out okay..." " It just the pain was pretty sharp...tonight and some shortness of breath..." " This is the first day of my vacation..." Patient is a 45 year old female [facility].. who presents with above hx and complaints central and left chest wall pain. Pain was sharp and awakening her from sleep tonight. There was there was some associated dyspnea. Patient reportedly had normal work-up for cardiac function by Dr. Elmore in Feb 2020 with Normal Lt Ventricular wall thickness,systolicfunction, with Ejection Fx 50-55%. and normal diastolic function. Patient does have a history of lupus wit h occasional lupus flareup. Patient has history of anxiety, GERD, seizure disorder, chronic anemia, leukopenia, and of pleurisy. Patient has undergone uterine ablation, patient has had COVID vaccination in April of this past year. Is exposed to patients at [facility]. Patient he denies any fever or chills. No recent travel outside the [place] area. Pt. no history of trauma. No history of cough. Patient normally follows with Lisa for primary care and rheumatology for Lupus. Patient not currently on steroids. (EMELY CHANG MD) Review of Systems: Review of Systems: Constitutional: Denies fever or chills Eyes: Denies change in visual acuity HENT: Denies nasal congestion or sore throat Respiratory: Denies cough or shortness of breath Cardiovascular: Denies chest pain or edema GI: Denies abdominal pain, nausea, vomiting, bloody stools or diarrhea : Denies dysuria Musculoskeletal: Denies back pain or joint pain Integument: Denies rash Neurologic: Denies headache, focal weakness or sensory changes Endocrine: Denies polyuria or polydipsia Lymphatic: Denies swollen glands Psychiatric: Denies depression or anxiety (EMELY CHANG MD) Family History: Family History: Noncontributory to presentation. (EMELY CHANG MD) Current Medications: Current Meds: See nursing for home meds (EMELY CHANG MD) Allergies: Allergies: Allergies Coded Allergies Type Severity Reaction Last Updated Verified ceftriaxone Allergy Severe LIP SWELLING/NUMBNESS 08/12/18 Yes nitrofurantoin Allergy Intermediate Itching 02/22/18 Yes (EMELY CHANG MD) Physical Exam: PE: Constitutional: Well developed, well nourished, moderate acute distress, non- toxic appearance. [] HENT: Normocephalic, atraumatic, bilateral external ears normal, oropharynx moist, no oral exudates, nose normal. [] Eyes: PERRLA, EOMI, conjunctiva normal, no discharge. [] Neck: Normal range of motion, no tenderness, supple, no stridor. [] Cardiovascular: Bradycardia heart rate regular rhythm, no murmur [] Lungs & Thorax: Bilateral breath sounds equal apex but does have basilar crackles bilaterally on auscultation. The patient does have somewhat reproducible pleuritic chest pain with deep breaths and cough. Pain is localized to the center of her chest and slightly to the right of sternum Abdomen: Bowel sounds normal, soft, no tenderness, no masses, no pulsatile masses. Old surgery scar. Skin: Warm, dry, no erythema, no rash. [] Back: No tenderness, no CVA tenderness. [] Extremities: No tenderness, no cyanosis, no clubbing, ROM intact, no edema. Cording appreciated in legs Neurologic: Alert and oriented X 3, normal motor function, normal sensory function, no focal deficits noted. [] Psychologic: Affect anxious, judgement normal, mood normal. [] (EMELY CHANG MD) EKG: EKG: My interpretation EKG shows a sinus bradycardia 58 bpm. No acute morphology. Time of EKG is 406 hours My interpretation second EKG shows a sinus bradycardia 55 bpm. No acute morphology. No acute interval change. Time of this EKG is 526 hours [] (EMELY CHANG MD) Radiology/Procedures: Radiology/Procedures: [address] [address] IMAGING REPORT Signed PATIENT: HOMA DOMINIQUE ACCOUNT: [id number] : 1975 LOCATION: ER AGE: 45 SEX: F EXAM STATUS: REG ER ORD. PHYSICIAN: EMELY CHANG MD REASON: cp PROCEDURE: PORTABLE CHEST 1V AP chest x-ray HISTORY: Chest pain. FINDINGS: Heart size normal. Mediastinal silhouette is normal. No pneumothorax, pulmonary opacities or pleural effusions. The bones are unremarkable. IMPRESSION: No acute process. Electronically signed by: Nimesh Lawson MD (09/24/2020 5:12 AM) [facility] [place] DICTATED AND SIGNED BY: NIMESH LAWSON MD DATE: 09/24/20510 CC: EMELY CHANG MD; ASHLEY JONES ~MTH0 0 [][address] [address] IMAGING REPORT Signed PATIENT: HOMA DOMINIQUE ACCOUNT: [id number] : 1975 LOCATION: ER AGE: 45 SEX: F EXAM STATUS: REG ER ORD. PHYSICIAN: EMELY CHANG MD REASON: dyspnea, lupus, cp- eval. pe, OMNI 350, 100ml PROCEDURE: CT ANGIOGRAPHY CHEST CT angiography chest with contrast PQRS statement: CT scans at this facility use dose reduction including either automated exposure control, iterative reconstructions, and /or weight based radiation dosing via mA and kV modification when appropriate to reduce radiation dose to as low as reasonably achievable. Contrast: 100 mL Isovue-370 venous contrast with 3-D MIP reconstructions of the arteries acquired. HISTORY: Dyspnea. Chest pain. Lupus. FINDINGS: There is fluid in the esophagus. Heart size normal. No pulmonary artery emboli. Aorta unremarkable. No adenopathy in the chest. Ascending aorta diameter 3.1 cm. Several subcentimeter axillary lymph nodes likely reactive. Trachea and bronchi are unremarkable. Mild upper lobe paraseptal pulmonary emphysema. Bilateral lower lobes demonstrate basilar peripheral subpleural groundglass densities and interstitial reticulation, there could be some areas of early cystic change raising the possibility of interstitial lung disease with honeycomb fibrosis from usual interstitial pneumonitis. There are lesser areas of involvement of the subpleural upper lung zones. At the right lower lobe superior segment is a 6 mm solid nodule surrounded by groundglass density image 56. Bones are unremarkable. IMPRESSION: 1. No pulmonary artery emboli. 2. Basilar preferential peripheral subpleural parenchymal groundglass opacities and interstitial reticulation suggesting areas of pneumonitis. There may be some cystic changes surrounded by the groundglass densities as well which raises the possibility of pulmonary fibrosis from usual interstitial pneumonitis. This is similar to prior studies. 3. Esophageal fluid may indicate gastroesophageal reflux. 4. 6 mm solid pulmonary nodule of the right lower lobe superior segment is stable back to November 2016, given over 3 years of stability considered benign. Electronically signed by: Nimesh Lawson MD (09/24/2020 6:55 AM) [facility] [place] DICTATED AND SIGNED BY: NIMESH LAWSON MD DATE: 09/24/20 0645 CC: YOLANDA ALVARES DO; EMELY CHANG MD; ASHLEY JONES ~MTH0 0 (EMELY CHANG MD) Impressions: CT angiography chest with contrast PQRS statement: CT scans at this facility use dose reduction including either automated exposure control, iterative reconstructions, and /or weight based radiation dosing via mA and kV modification when appropriate to reduce radiation dose to as low as reasonably achievable. Contrast: 100 mL Isovue-370 venous contrast with 3-D MIP reconstructions of the arteries acquired. HISTORY: Dyspnea. Chest pain. Lupus. FINDINGS: There is fluid in the esophagus. Heart size normal. No pulmonary artery emboli. Aorta unremarkable. No adenopathy in the chest. Ascending aorta diameter 3.1 cm. Several subcentimeter axillary lymph nodes likely reactive. Trachea and bronchi are unremarkable. Mild upper lobe paraseptal pulmonary e mphysema. Bilateral lower lobes demonstrate basilar peripheral subpleural groundglass densities and interstitial reticulation, there could be some areas of early cystic change raising the possibility of interstitial lung disease with honeycomb fibrosis from usual interstitial pneumonitis. There are lesser areas of involvement of the subpleural upper lung zones. At the right lower lobe superior segment is a 6 mm solid nodule surrounded by groundglass density image 56. Bones are unremarkable. IMPRESSION: 1. No pulmonary artery emboli. 2. Basilar preferential peripheral subpleural parenchymal groundglass opacities and interstitial reticulation suggesting areas of pneumonitis. There may be some cystic changes surrounded by the groundglass densities as well which raises the possibility of pulmonary fibrosis from usual interstitial pneumonitis. This is similar to prior studies. 3. Esophageal fluid may indicate gastroesophageal reflux. 4. 6 mm solid pulmonary nodule of the right lower lobe superior segment is stabl e back to November 2016, given over 3 years of stability considered benign. Electronically signed by: Nimesh Lawson MD (09/24/2020 6:55 AM) [facility] [place] DICTATED AND SIGNED BY: NIMESH LAWSON MD DATE: 09/24/20 0645 CC: YOLANDA ALVARES DO; EMELY CHANG MD; ASHLEY JONES PA ~MTH0 0 (YOLANDA ALVARES DO) Heart Score: C/O Chest Pain: Yes HEART Score for Chest Pain: HEART Score for Chest Pain Response (Comments) Value History Slighlty/Non-Suspicious 0 ECG Normal 0 Age < 45 0 Risk Factors 1 or 2 Risk Factors 1 Troponin >1-<3x Normal Limit 1 Total 2 Risk Factors: Risk Factors: DM, Current or recent (<one month) smoker, HTN, HLP, family history of CAD, obesity. Risk Scores: Score 0 - 3: 2.5% MACE over next 6 weeks - Discharge Home Score 4 - 6: 20.3% MACE over next 6 weeks - Admit for Clinical Observation Score 7 - 10: 72.7% MACE over next 6 weeks - Early Invasive Strategies (EMELY CHANG MD) C/O Chest Pain: Yes HEART Score for Chest Pain: HEART Score for Chest Pain Response (Comments) Value History Slighlty/Non-Suspicious 0 ECG Normal 0 Age < 45 0 Risk Factors 1 or 2 Risk Factors 1 Troponin < Normal Limit 0 Total 1 (YOLANDA ALVARSE DO) Course & Med Decision Making: Course & Med Decision Making Pertinent Labs and Imaging studies reviewed. (See chart for details) Patient has had episodes of pleurisy before with exacerbation of her lupus. There is some concern for infectious issues as well as pulmonary embolism especially since she has elevated D-dimer.. Cardiac cause of pain is less concerning since she had a essentially normal work-up in February of this year. But with her history of lupus is at risk for pericarditis. EKG is not consistent with this finding however. JOURDAN is a concen in spite of her vaccinations in April/ May Patient endorsed to Dr. Alvares at shift change. Pending CT angio and repeat Trop. Impression; 1. Chest pain-pleuritic in nature 2. Leukopenia 2.4-monocytes 17 3. Anemia 10.7 hemoglobin 4. Elevated creatinine 1.1 5. Elevated D-dimer 0.70 [] (EMELY CHANG MD) Course & Med Decision Making The patient CT is negative for pulmonary embolus or other significant finding. She has some chronic findings that are similar to previous. See official read for more details. The patient's second troponin is negative. The patient's work-up and results are reassuring. She is stable for discharge at this time. (YOLANDA ALVARES DO) Dragon Disclaimer: Dragon Disclaimer: This electronic medical record was generated, in whole or in part, using a voice recognition dictation system. (EMELY CHANG MD) Departure Departure: Impression: Primary Impression: Chest pain Qualified Codes: R07.9 - Chest pain, unspecified Disposition: HOME / SELF CARE / HOMELESS Condition: STABLE Referrals: ASHLEY JONES (PCP) Patient Instructions: Chest Pain (Nonspecific), [id number] Dragon Disclaimer This chart was dictated in whole or in part using Voice Recognition software in a busy, high-work load, and often noisy Emergency Department environment. It may contain unintended and wholly unrecognized errors or omissions. (EMELY CHANG MD) Dragon Disclaimer This chart was dictated in whole or in part using Voice Recognition software in a busy, high-work load, and often noisy Emergency Department environment. It may contain unintended and wholly unrecognized errors or omissions. (YOLANDA ALVARES DO) Dragon Disclaimer This chart was dictated in whole or in part using Voice Recognition software in a busy, high-work load, and often noisy Emergency Department environment. It may contain unintended and wholly unrecognized errors or omissions. (EMELY CHANG MD) Dragon Disclaimer This chart was dictated in whole or in part using Voice Recognition software in a busy, high-work load, and often noisy Emergency Department environment. It may contain unintended and wholly unrecognized errors or omissions. (YOLANDA ALVARES DO) Dragon Disclaimer This chart was dictated in whole or in part using Voice Recognition software in a busy, high-work load, and often noisy Emergency Department environment. It may contain unintended and wholly unrecognized errors or omissions. (EMELY CHANG MD) Dragon Disclaimer This chart was dictated in whole or in part using Voice Recognition software in a busy, high-work load, and often noisy Emergency Department environment. It may contain unintended and wholly unrecognized errors or omissions. (YOLANDA ALVARES DO) EMELY CHANG MD Sep 24, 2020 04:02 YOLANDA ALVARES DO Sep 24, 2020 08:19
--- NOTE | 2020-09-24 04:58 | EKG ---
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
[2020-09-24 04:59] LABS: BASO % 1 % (0-3); EOS % 0 % (0-3); HEMATOCRIT 33.3 % (36.0-47.0); HEMOGLOBIN 10.7 g/dL (12.0-15.5); LYMPH # 0.7 x10^3/uL (1.0-4.8); LYMPH % 28 % (24-48); MEAN CORPUSCULAR HEMOGLOBIN 26 pg (25-35); MEAN CORPUSCULAR HGB CONC 32 g/dL (31-37); MEAN CORPUSCULAR VOLUME 81 fL (79-100); MONO # 0.4 x10^3/uL (0.0-1.1); MONO % 17 % (0-9); NEUT # 1.3 x10^3uL (1.8-7.7); NEUT % 54 % (31-73); PLATELET COUNT 191 x10^3/uL (140-400); RED BLOOD COUNT 4.14 x10^6/uL (3.50-5.40); RED CELL DISTRIBUTION WIDTH 14.3 % (11.5-14.5); WHITE BLOOD COUNT 2.4 x10^3/uL (4.0-11.0)
[2020-09-24] MEDS ORDERED: ASPIRIN CHEWABLE 81 MG TABLET. PO ONE (05:00)
[2020-09-24] MEDS ORDERED: IV RINGERS SOLUTION,LACTATED 1,000 ML IV SCH (05:00)
[2020-09-24] MEDS ORDERED: ENOXAPARIN ** NOTE DOSE ** SYRINGE SQ ONE (05:00)
[2020-09-24 05:05] LABS: CALCIUM 8.3 mg/dL (8.5-10.1); CREATININE 1.1 mg/dL (0.6-1.0); GFR 65.6; POTASSIUM 3.9 mmol/L (3.5-5.1)
--- NOTE | 2020-09-24 05:14 | RAD ---
AP chest x-ray HISTORY: Chest pain. FINDINGS: Heart size normal. Mediastinal silhouette is normal. No pneumothorax, pulmonary opacities o r pleural effusions. The bones are unremarkable. IMPRESSION: No acute process. Electronically signed by: Nilton Lawson MD (09/24/2020 5:12 AM) [facility] [place]
[2020-09-24 05:16] LABS: ALBUMIN 3.7 g/dL (3.4-5.0); C REACTIVE PROTEIN 2.8 mg/L (0-3.3); DIRECT BILIRUBIN 0.1 mg/dL (0.0-0.2); TOTAL BILIRUBIN 0.2 mg/dL (0.2-1.0); TOTAL PROTEIN 7.5 g/dL (6.4-8.2)
[2020-09-24 05:19] LABS: % BANDS 2 % (0-9); % LYMPHS 33 % (24-48); % MONOS 6 % (0-10); % SEGS 59 % (35-66)
[2020-09-24 05:20] LABS: PLT ESTIMATE ADEQUATE (ADEQUATE)
--- NOTE | 2020-09-24 05:38 | EKG ---
[facility] ED 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
[2020-09-24 05:55] LABS: SEDIMENTATION RATE 35 (0-25)
[2020-09-24] MEDS ORDERED: CONTRAST GIVEN. MC PRN (06:30)
[2020-09-24] MEDS ORDERED: IOHEXOL 350 MG/ML 100 ML VIAL. IV ONE (06:30)
--- NOTE | 2020-09-24 06:57 | RAD ---
CT angiography chest with contrast PQRS statement: CT scans at this facility use dose reduction including either automated exposure cont rol, iterative reconstructions, and /or weight based radiation dosing via mA and kV modification when appropriate to reduce radiation dose to as low as reasonably achievable. Contrast: 100 mL Isovue-370 venous contrast with 3-D MIP reconstructions of the arteries acquired. HISTORY: Dyspnea. Chest pain. Lupus. FINDINGS: There is fluid in the esophagus. Heart size normal. No pulmonary artery emboli. Aorta unrem arkable. No adenopathy in the chest. Ascending aorta diameter 3.1 cm. Several subcentimeter axillary lymph nodes likely reactive. Trachea and bronchi are unremarkable. Mild upper lobe paraseptal pulmona ry emphysema. Bilateral lower lobes demonstrate basilar peripheral subpleural groundglass densities a nd interstitial reticulation, there could be some areas of early cystic change raising the possibilit y of interstitial lung disease with honeycomb fibrosis from usual interstitial pneumonitis. There are lesser areas of involvement of the subpleural upper lung zones. At the right lower lobe superior seg ment is a 6 mm solid nodule surrounded by groundglass density image 56. Bones are unremarkable. IMPRESSION: 1. No pulmonary artery emboli. 2. Basilar preferential peripheral subpleural parenchymal groundglass opacities and interstitial reti culation suggesting areas of pneumonitis. There may be some cystic changes surrounded by the groundgl ass densities as well which raises the possibility of pulmonary fibrosis from usual interstitial pneu monitis. This is similar to prior studies. 3. Esophageal fluid may indicate gastroesophageal reflux. 4. 6 mm solid pulmonary nodule of the right lower lobe superior segment is stable back to November 7, given over 3 years of stability considered benign. Electronically signed by: Nilton Lawson MD (09/24/2020 6:55 AM) [facility]
[2020-09-24 07:03] LABS: BARBITURATES NEG (NEG); BENZODIAZEPINES POS (NEG); CANNABINOIDS NEG (NEG); COCAINE NEG (NEG); METHADONE NEG (NEG); OPIATES NEG (NEG); PHENCYCLIDINE NEG (NEG)
[2020-09-24 07:06] LABS: AMPHETAMINE/METHAMPHETAMINE NEG (NEG)
[2020-09-24 07:12] LABS: BACTERIA,URINE 0 /HPF (0-FEW); BILIRUBIN,URINE NEG (NEG); CLARITY,URINE CLEAR; COLOR,URINE YELLOW; GLUCOSE,URINE NEG (NEG); NITRITE,URINE NEG (NEG); RBC,URINE 0 /HPF (0-2); SQUAMOUS EPITHELIAL CELL,UR FEW /LPF; UROBILINOGEN,URINE 0.2 mg/dL (0.2 mg/dL)
[2020-09-24 08:49] VITALS: BP 110/68
--- NOTE | 2020-09-24 13:08 | EKG ---
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
== END 2020-09-24 08:48 | disposition home or self-care (01) ==
LOC: ER 03:53
DX: R07.89 Other chest pain (principal); D72.819 Decreased white blood cell count, unspecified; D64.9 Anemia, unspecified; R94.4 Abnormal results of kidney function studies; R79.89 Other specified abnormal findings of blood chemistry; Z88.3 Allergy status to other anti-infective agents; Z20.822 Contact with and (suspected) exposure to COVID-19
CPT/HCPCS: 36415; 71045; 71275; 80048; 80076; 80307; 81001; 82550; 83690; 83735; 83880; 84443; 84484; 85007; 85025; 85379; 85610; 85651; 85730; 86140; 87426; 93005; 96360; 96361; 96372; 99285; C9803; J1650; J7120; Q9967; U0003

== ENCOUNTER → 2020-10-23 | Outpatient (CLI) | payer OTHER ==
[2020-09-24 08:49] VITALS: BP 110/68
[2020-10-23 11:23] LABS: BASO % 1 % (0-3); EOS % 0 % (0-3); HEMATOCRIT 36.1 % (36.0-47.0); HEMOGLOBIN 11.7 g/dL (12.0-15.5); LYMPH # 0.5 x10^3/uL (1.0-4.8); LYMPH % 17 % (24-48); MEAN CORPUSCULAR HEMOGLOBIN 26 pg (25-35); MEAN CORPUSCULAR HGB CONC 33 g/dL (31-37); MEAN CORPUSCULAR VOLUME 81 fL (79-100); MONO # 0.4 x10^3/uL (0.0-1.1); MONO % 13 % (0-9); NEUT # 2.3 x10^3uL (1.8-7.7); NEUT % 70 % (31-73); PLATELET COUNT 217 x10^3/uL (140-400); RED BLOOD COUNT 4.45 x10^6/uL (3.50-5.40); RED CELL DISTRIBUTION WIDTH 14.6 % (11.5-14.5); WHITE BLOOD COUNT 3.3 x10^3/uL (4.0-11.0)
[2020-10-23 11:48] LABS: ALBUMIN 3.8 g/dL (3.4-5.0); CALCIUM 8.6 mg/dL (8.5-10.1); CREATININE 1.1 mg/dL (0.6-1.0); GFR 65.6; POTASSIUM 4.1 mmol/L (3.5-5.1); TOTAL BILIRUBIN 0.3 mg/dL (0.2-1.0); TOTAL PROTEIN 7.7 g/dL (6.4-8.2)
[2020-10-23 12:59] LABS: SEDIMENTATION RATE 38 (0-25)
[2020-10-23 20:07] LABS: C3 COMPLEMENT 99 mg/dL (82-167); C4 COMPLEMENT 18 mg/dL (12-38)
[2020-10-24 11:22] LABS: ANTI-DS DNA 19 IU/mL (0-9)
== END ==
LOC: LAB 10:52
PROVIDERS: ATTEND Internal Medicine Rheumatology
DX: M32.9 Systemic lupus erythematosus, unspecified (principal)
CPT/HCPCS: 36415; 80053; 85025; 85651; 86140; 86160; 86255

== ENCOUNTER → 2021-04-03 | Outpatient (CLI) | payer OTHER ==
--- NOTE | 2021-04-03 18:04 | CARD ---
MR#: [id number] Date of Study: 04/03/2021 Ordering Physician: ALEXANDER ELMORE, Referring Physician: ALEXANDER ELMORE, Tech: Sue Nelsonkeyonnadiego [facility] APPROVED REPORT EXAM: Two-dimensional and M-mode echocardiogram with Doppler and color Doppler. Other Information Quality : AverageHR: 63bpm INDICATION LV Function:Systolic 2D DIMENSIONS Left Atrium(2D)3.1 (1.6-4.0cm)IVSd0.9 (0.7-1.1cm) Aortic Root(2D)2.8 (2.0-3.7cm)LVDd4.5 (3.9-5.9cm) LVOT Diameter2.0 (1.8-2.4cm)PWd0.8 (0.7-1.1cm) LVDs3.3 (2.5-4.0cm)FS (%) 26.3 % SV48.7 mlLVEF(%)51.7 (>50%) Aortic Valve AoV Peak Fito.121.7cm/sAoV VTI25.9cm AO Peak GR.5.9mmHgLVOT Peak Fito.100.3cm/s LVOT VTI 21.52cmAO Mean GR.3mmHg TYRON (VMAX)2.39nw7QGW (VTI)2.72cm2 Mitral Valve MV E Faynicwa19.4cm/sMV E Peak Gr.2mmHg MV DECEL [id number] A Sqmnasay68.9cm/s MV E Mean Gr.1mmHgE/A Ratio1.3 Pulmonary Valve PV Peak Kizzyxxd38.9cm/sPV Peak Grad.2mmHg Pulmonary Vein S1 Gmcjhqfr95.0cm/sD2 Gegnsxdl57.8cm/s LEFT VENTRICLE The left ventricle is normal size. There is normal left ventricular wall thickness. The left ventricu lar systolic function is low normal. The Ejection Fraction is 50%. There is normal LV segmental wall motion. The left ventricular diastolic function and filling is normal for age. RIGHT VENTRICLE The right ventricle is normal size. There is normal right ventricular wall thickness. The right ventr icular systolic function is normal. ATRIA The left atrium size is normal. The right atrium size is normal. The interatrial septum is intact wit h no evidence for an atrial septal defect or patent foramen ovale as noted on 2-D or Doppler imaging. AORTIC VALVE The aortic valve is normal in structure and function. Doppler and Color Flow revealed no significant aortic regurgitation. There is no significant aortic valvular stenosis. Calculated aortic valve area is 2.7 cm2 with maximum pressure gradient of 6 mmHg and mean pressure gradient of 3 mmHg. MITRAL VALVE The mitral valve is normal in structure and function. There is no evidence of mitral valve prolapse. There is no mitral valve stenosis. Doppler and Color-flow revealed trace mitral regurgitation. TRICUSPID VALVE The tricuspid valve is normal in structure and function. Doppler and Color Flow revealed no tricuspid valve regurgitation noted. There is no tricuspid valve stenosis. PULMONIC VALVE The pulmonic valve is not well visualized. Doppler and Color Flow revealed trace pulmonic valvular re gurgitation. GREAT VESSELS The aortic root is normal in size. The IVC is normal in size and collapses >50% with inspiration. PERICARDIAL EFFUSION There is no evidence of significant pericardial effusion. Critical Notification Critical Value: No <Conclusion> The left ventricular systolic function is low normal. The Ejection Fraction is 50%. There is normal LV segmental wall motion. Trace mitral regurgitation. There is no evidence of significant pericardial effusion. Signed by : Alexander Elmore, Electronically Approved : 04/03/2021 18:03:19
== END ==
LOC: ECHO 13:05
PROVIDERS: ATTEND Internal Medicine Cardiovascular Disease
DX: I50.22 Chronic systolic (congestive) heart failure (principal)
CPT/HCPCS: 93306

== ENCOUNTER → 2021-04-24 | Outpatient (CLI) | payer OTHER ==
--- NOTE | 2021-04-24 17:57 | RAD ---
DATE: 04/24/2021 EXAM: MG BILAT SCREEN+JANAE HISTORY: Screening COMPARISON: 04/03/2020, 03/31/2019, 03/24/2018 This study was interpreted with the benefit of Computerized Aided Detection (CAD). Breast Density: SCATTERED The breast parenchyma shows scattered fibroglandular densities. Breast pare nchyma level B. FINDINGS: There is a 6 mm asymmetry in the inner right breast 7.5 cm from the nipple on CC view. No d efinite correlation on MLO view. No suspicious mass in the right breast. No calcifications in either breast. IMPRESSION: 6 mm asymmetry in the inner right breast. Recommend spot compression CC view with possibl e ultrasound to further evaluate. BI-RADS CATEGORY: 0 INCOMPLETE: NEEDS ADDITIONAL IMAGING EVALUATION AND/OR PRIOR MAMMOGRAMS FOR AMY RISON. RECOMMENDED FOLLOW-UP: ADD ADDITIONAL IMAGING PQRS compliance statement: Patient information was entered into a reminder system with a target due d ate for the next mammogram. Mammography is a sensitive method for finding small breast cancers, but it does not detect them all a nd is not a substitute for careful clinical examination. A negative mammogram does not negate a clin ically suspicious finding and should not result in delay in biopsying a clinically suspicious abnorma lity. "Our facility is accredited by the [employer] Mammography Program." Electronically signed by: Bindu Gomez MD (04/24/2021 5:54 PM) [id number]
== END ==
LOC: MAMMO 09:43
PROVIDERS: ATTEND Physician Assistant Medical
DX: Z12.31 Encounter for screening mammogram for malignant neoplasm of breast (principal)
CPT/HCPCS: 77063; 77067

== ENCOUNTER → 2021-05-01 | Outpatient (CLI) | payer OTHER ==
[2021-05-01 08:15] LABS: BASO % 1 % (0-3); EOS % 1 % (0-3); HEMATOCRIT 38.2 % (36.0-47.0); HEMOGLOBIN 12.2 g/dL (12.0-15.5); LYMPH # 0.7 x10^3/uL (1.0-4.8); LYMPH % 31 % (24-48); MEAN CORPUSCULAR HEMOGLOBIN 26 pg (25-35); MEAN CORPUSCULAR HGB CONC 32 g/dL (31-37); MEAN CORPUSCULAR VOLUME 81 fL (79-100); MONO # 0.3 x10^3/uL (0.0-1.1); MONO % 15 % (0-9); NEUT # 1.2 x10^3uL (1.8-7.7); NEUT % 51 % (31-73); PLATELET COUNT 217 x10^3/uL (140-400); WHITE BLOOD COUNT 2.3 x10^3/uL (4.0-11.0)
[2021-05-01 08:37] LABS: ALBUMIN 3.8 g/dL (3.4-5.0); C REACTIVE PROTEIN 13.9 mg/L (0-3.3); CALCIUM 8.6 mg/dL (8.5-10.1); CREATININE 1.1 mg/dL (0.6-1.0); GFR 65.3; POTASSIUM 4.2 mmol/L (3.5-5.1); TOTAL BILIRUBIN 0.3 mg/dL (0.2-1.0); TOTAL PROTEIN 7.7 g/dL (6.4-8.2)
[2021-05-01 09:18] LABS: BACTERIA,URINE 0 /HPF (0-FEW); CLARITY,URINE CLEAR; COLOR,URINE YELLOW; GLUCOSE,URINE NEG (NEG); NITRITE,URINE NEG (NEG); RBC,URINE OCC /HPF (0-2); SQUAMOUS EPITHELIAL CELL,UR FEW /LPF; UROBILINOGEN,URINE 0.2 mg/dL (0.2 mg/dL); WBC,URINE OCC /HPF (0-4)
[2021-05-01 09:34] LABS: SEDIMENTATION RATE 37 (0-25)
[2021-05-01 10:27] LABS: % ATYL 4 % (0-0); % BANDS 5 % (0-9); % EOS 1 % (0-5); % LYMPHS 33 % (24-48); % MONOS 7 % (0-10); % SEGS 50 % (35-66)
[2021-05-01 10:32] LABS: PLT ESTIMATE ADEQUATE (ADEQUATE)
[2021-05-01 18:22] LABS: CHOLESTEROL/HDL RATIO 4.6; FREE T4 0.98 ng/dL (0.76-1.46); THYROID STIM HORMONE (TSH) 2.666 uIU/mL (0.358-3.740)
[2021-05-02 20:07] LABS: ANA INTERP Positive (.)
== END ==
LOC: LAB 08:00
PROVIDERS: ATTEND Physician Assistant Medical
DX: Z12.31 Encounter for screening mammogram for malignant neoplasm of breast (principal); Z00.00 Encounter for general adult medical examination without abnormal findings; I42.9 Cardiomyopathy, unspecified; E55.9 Vitamin D deficiency, unspecified; M32.9 Systemic lupus erythematosus, unspecified
CPT/HCPCS: 36415; 80053; 80061; 81001; 82306; 84439; 84443; 85007; 85025; 85651; 86038; 86140

== ENCOUNTER → 2021-05-21 | Outpatient (CLI) | payer OTHER ==
--- NOTE | 2021-05-21 16:07 | RAD ---
DIAGNOSTIC RIGHT BREAST MAMMOGRAM AND RIGHT BREAST ULTRASOUND TECHNIQUE: Digital mammography with spot compression CC view and full field ML view of the right [address] st. Grayscale and color doppler ultrasound of the right breast area of concern. INDICATION: Callback for right breast asymmetry with COMPARISON: 04/24/2021, 04/03/2020 FINDINGS: Breast Density: There are scattered areas of fibroglandular density. Spot compression views of the inner right breast demonstrate decreased conspicuity however persistent subtle asymmetry in the right inner breast. Correlation with prior mammography suggests this is slig htly lower position. Ultrasound in the 4:00 radial of the right breast, 5 cm from the nipple demonstrates a parallel orien tation ovoid anechoic cyst measuring 7 x 2 x 6 mm with well-defined back wall and absent color Dopple r flow. No abnormal axillary lymph nodes identified. IMPRESSION: 1. Benign 7 mm right inner breast cyst. ASSESSMENT: BI-RADS 2: Benign. RECOMMENDATION: Routine annual screening mammogram. The facility will notify the patient of the results via mail. Patient information will be entered int o the mammography reminder system with a target recall date for the next mammogram. A reminder letter will be generated by the facility. Electronically signed by: Jozef Guerrero MD (05/21/2021 4:05 PM) [id number]
== END ==
LOC: MAMMO 14:02
PROVIDERS: ATTEND Physician Assistant Medical
DX: N60.01 Solitary cyst of right breast (principal)
CPT/HCPCS: 76641; 77065

== ENCOUNTER → 2021-05-29 | Outpatient (CLI) | payer OTHER ==
[2021-05-29 21:16] LABS: C3 COMPLEMENT 112 mg/dL (82-167)
[2021-05-29 22:16] LABS: C4 COMPLEMENT 23 mg/dL (12-38)
[2021-05-30 10:08] LABS: ANTI-DS DNA 15 IU/mL (0-9)
== END ==
LOC: LAB 08:34
PROVIDERS: ATTEND Nurse Practitioner Family
DX: I42.7 Cardiomyopathy due to drug and external agent (principal); I73.00 Raynaud's syndrome without gangrene; M32.9 Systemic lupus erythematosus, unspecified; M35.9 Systemic involvement of connective tissue, unspecified
CPT/HCPCS: 85651; 86140; 86160; 86255; 86481